=== PATIENT | male | born 1960 | race Caucasian/White ===

== ENCOUNTER 2023-05-28 13:33 | Outpatient (OUT) | payer OTHER, SELFPAY ==
--- NOTE | 2023-05-28 13:53 | XR_ITS ---
The [address] [address] Patient Name: TABATHA EARL MRN: [id number] date: 1960 Sex: M Assigned Patient Location: LAB Current Patient Location: LAB Accession/Order Number: [id number] Exam Date: 05/28/2023 13:58 Report Date: 05/28/2023 14:13 At the request of: CHYNA GUTIERREZ Procedure: XR chest 2V EXAM: XR chest 2V HISTORY: R06.09 Dyspnea on exertion for the past 3 months. COMPARISON: None. TECHNIQUE: Upright PA and lateral chest x-ray FINDINGS: The heart is not enlarged and the vasculature is not distended. A very small amount of atelectasis or infiltrate is suggested at the left lung base posteriorly. No acute infiltrate, effusion or pneumothorax is otherwise identified. The osseous structures are otherwise grossly intact. XR/XR chest 2V IMPRESSION: A small amount of atelectasis or infiltrate at the left lung base posteriorly is probably present. There is no other evidence of a focal infiltrate or cardiac decompensation. Direct comparison with a previous study would be helpful in determining the chronicity of these findings. Electronically authenticated by: SHAHRZAD JARAMILLO Date: 05/28/2023 14:13
[2023-05-28 14:09] LABS: Basophils Absolute Auto 0.1 10^3/uL (0.0-0.1); Basophils Percent Auto 1.1 % (0.2-2.0); Eosinophils Absolute Auto 0.2 10^3/uL (0.0-0.7); Eosinophils Percent Auto 2.4 % (0.9-7.0); Hematocrit 40.6 % (42.0-54.0); Immature Granulocytes Abs Auto 0.07 10^3/uL (0.00-0.03); Lymphocytes Absolute Auto 1.5 10^3/uL (1.2-3.8); Lymphocytes Percent Auto 20.9 % (20.5-60.0); Mean Corpuscular Hemoglobin 28.3 pg (25.9-34.0); Mean Corpuscular Volume 88.3 fL (80.0-94.0); Mean Platelet Volume 9.9 fL (9.5-13.5); Monocytes Absolute Auto 0.6 10^3/uL (0.3-0.8); Monocytes Percent Auto 7.8 % (1.7-12.0); Neutrophils Absolute Auto 4.8 10^3/uL (1.4-6.5); Neutrophils Percent Auto 66.8 % (43.0-75.0); Platelet Count 237 10^3/uL (150-450); White Blood Count 7.2 10^3/uL (4.0-11.0)
[2023-05-28 14:51] LABS: Alanine Aminotransferase 26 U/L (16-63); Albumin Globulin Ratio 0.7; Albumin Level 2.8 g/dL (3.4-5.0); Alkaline Phosphatase 86 U/L (46-116); Anion Gap 6.3; Aspartate Amino Transferase 12 U/L (15-37); BUN Creatinine Ratio 13.3; Bilirubin Total 0.4 mg/dL (0.2-1.0); Calcium 8.4 mg/dL (8.5-10.1); Carbon Dioxide 30.6 mmol/L (21.0-32.0); Chloride 107 mmol/L (98-107); Estimated GFR (African America >60 (>=60); Estimated GFR (Non-African Ame >60 (>=60); Globulin 3.9 g/dL; Glucose 101 mg/dL (74-106); Potassium 3.9 mmol/L (3.5-5.1); Sodium 140 mmol/L (136-145); Total Protein 6.7 g/dL (6.4-8.2)
== END 2023-05-28 13:34 | disposition home or self-care (01) ==
PROVIDERS: PCP Family Medicine; Visit Provider Nurse Practitioner
DX: R00.2 Palpitations (principal); R06.09 Other forms of dyspnea
CPT/HCPCS: 36415; 71046; 80053; 83880; 85025

== ENCOUNTER 2023-06-18 09:09 | Outpatient (OUT) | payer OTHER, SELFPAY ==
--- OUTSIDE RECORDS SUMMARY | 2023-06-18 09:14 | XMS_ITS | CCD ---
Author Name Unknown Address [address] [place] [id number] Organization [facility] Care Team Providers Care Cell Maker Name Role Phone Aaron Almaraz Unavailable MD Ashley Palma Primary Care Provider MD Aaron Almaraz Attending Provider [phone] MISC, DR COLEMAN Admitting Unavailable MISC, DR COLEMAN Attending Unavailable LOUIE, DR ASHLEY Grayson Primary Care Unavailable MISC, DR COLEMAN Consulting Unavailable MISC, DR COLEMAN Admitting Unavailable MISC, DR COLEMAN Attending Unavailable PALMA, DR ASHLEY Grayson Primary Care Unavailable MISC, DR COLEMAN Consulting Unavailable Louie, MD Ashley Grayson Primary Care Provider MD Aaron Almaraz Attending Provider Aaron Almaraz Attending Unavailable Aaron Almaraz Admitting Unavailable Ashley Palma Primary Care Unavailable MADONNA JO Attending Unavailable JACKIE MORALES Attending Unavailable CHYNA GUTIERREZ Attending Unavailable Allergies Allergy Classification Reported Allergen(s) Allergy Type Date of Onset Reaction(s) Facility (5 sources) patient allergy list reviewed by nurse or physicia Propensity to adverse reactions 6 Comment:Done [employer] Other (5 sources) Allergies Reconciled Propensity to adverse reactions Unknown [employer] Other Medications Current Medications Medication Drug Class(es) Dates Sig (Normalized) Sig (Original) meloxicam 15 mg oral tablet (2 sources) Nonsteroidal Anti-inflammatory Drug take 1 tablet by mouth once daily Meloxicam 15 MG TAKE 1 TABLET BY MOUTH ONCE DAILY Oral for 30 Days Active 24 hr metoprolol succinate 25 mg extended release oral tablet (20 sources) beta-Adrenergic Alexi Start: 03-21-2021 take 25 mg by mouth once daily Metoprolol Succinate Active 25 MG PO Daily March 20, 2021 11:00pm Metoprolol Succi tony ER Active predniSONE 5 mg oral tablet (20 sources) Start: 05-18-2023 predniSONE 5 M G 4 TABS A DAY FOR 1 WEEK, 3 TABS A DAY FOR 1 WEEK, 2 TABS A DAY FOR 1 A WEEK, 1 TAB A DAY FOR 1 WEEK Orally Once a day for 30 days Apr, Active Start: 04-23-2023 take 1 tablet by boby every twenty-four hours predniSONE 20 MG 1 tablet Orally Once a day for 30 days Apr, Active Start: 03-31-2022 take 1 tablet by boby th every twenty-four hours predniSONE 10 MG 1 tablet Orally Once a day for 30 day(s) Mar, Not-Taking Start: 02-13-2022 predniSONE 10 MG 40 mg for 14 days then 30 mg for 7 days, then 20 mg for 28 days Orally Once a day for 49 days Jan, Not-Taking Start: 08-01-2021 predniSONE 5 M G 2 TABLETS FOR 14 DAYS, THEN 1 TABLET FOR 14 DAYS Orally Once a day for 28 DAYS Jul, Active Start: 05-09-2021 take 1 tablet by boby every twenty-four hours predniSONE 20 MG 1 tablet Orally Once a day for 30 day(s) Apr, Active Start: 03-21-2021 End: 02-13-2022 take 20 mg by mouth once daily Prednisone Discontinued 20 MG PO Daily 180 March 20, 2021 11:00pm February 13, 2022 8:44am 1 ml ustekinumab 90 mg/ml prefilled syringe (8 sources) Interleukin-12 Antagonist, Interleukin-23 Antagonist Start: 04-23-2023 Ustekinumab (Stelara) 90 mg/mL Syringe Active 90 MG SUBCUT EVERY 8 WEEKS April 23, 2023 12:00am Stelara 90 MG/ML 1 sub q injection every 6 weeks Subcutaneous 1 every 6 weeks for 48 days Active Stelara Active Completed/Discontinued Medications Medication Drug Class(es) Dates Sig (Normalized) Sig (Original) 0.8 ml adalimumab 100 mg/ml auto-injector (16 sources) Tumor Necrosis Factor Alexi Start: 08-12-2021 Humira Pen 80 MG/0.8ML as directed Subcutaneous EVERY OTHER WEEK for 90 day(s) Jul, Not-Taking Start: 03-21-2021 End: 04-23-2023 Adalimumab (Humira(Cf)) 40 m g/0.4 mL syringe kit Discontinued 40 MG SUBCUT As Directed March 20, 2021 11:00pm April 23, 2023 7:09am every other week Problems Active Problems Problem Classification Problem Date Documented Da te Episodic/Chronic Abdominal pain (20 sources) Abdominal pain; Translations: [Unspecified abdominal pain] Onset: 08-04-2015 Episodic Cardiac dysrhythmias (7 sources) Palpitations; Translations: [Palpitations] Onset: 02-18-2018 Episodic Other gastrointestinal disorders (18 sources) Swollen abdomen; Translations: [Abdominal distension (gaseous)] Episodic Other inflammatory condition of skin (5 sources) Psoriasis; Translations: [Psoriasis, unspecified] Onset: 07-31-2017 Chronic Other lower respiratory disease (6 sources) Other forms of dyspnea; Translations: [OTHER FORMS OF DYSPNEA] Onset: 07-17-2022 Episodic Other non-traumatic joint disorders (1 source) Pain in unspecified joint Episodic Other nutritional; endocrine; and metabolic disorders (18 sources) Obese class II; Translations: [Body mass index (BMI) 35.0-35.9, adult] Chronic Other nutritional; endocrine; and metabolic disorders (18 sources) Obese class I; Translations: [Body mass index (BMI) 34.0-34.9, adult] Chronic Other skin disorders (5 sources) Localized swelling, mass and lump, right lower limb; Translations: [Localized swelling, mass and lump, right lower limb] Episodic Regional enteritis and ulcerative colitis (20 sources) Crohn's disease; Translations: [Crohn's disease, unspecified, without complications] Onset: 05-09-2021 Resolved: 11-14-2021 Chronic Unclassified (1 source) Encounter for screening for malignant neoplasm of colon; Translations: [Encounter for screening for malignant neoplasm of colon] Onset: 04-23-2023 Past or Other Problems Problem Classification Problem Date Documented Da te Episodic/Chronic Allergic reactions (5 sources) Contact dermatitis; Translations: [Contact dermatitis and other eczema, due to unspecified cause] Onset: Episodic Immunizations and screening for infectious disease (5 sources) Vaccination given; Translations: [Encounter for immunization] Onset: 4 Episodic Other gastrointestinal disorders (5 sources) Constipation; Translations: [Other constipation] Onset: 6 Episodic Phlebitis; thrombophlebitis and thromboembolism (5 sources) Phlebitis and thrombophlebitis of right popliteal vein; Translations: [Phlebitis and thrombophlebitis of right popliteal vein] Onset: 8 Episodic Residual codes; unclassified (5 sources) Edema; Translations: [Edema] Onset: 8 Episodic Residual codes; unclassified (2 sources) Localized edema; Translations: [Localized edema] Onset: 3 Episodic Results Test Name Value Interpretation Reference Range Facility Office Visiton 05-28-2023 Follow-up visit [id number] Antoine Bui Renuka 1960 M Date Provider Department Center 05/28/2023 CHYNA ENG HARJEET Zhong Family History Problem Relation Age of Onset No Known Problems Mother No Known Problems Father Family Status - Relation Status Age at Mother Father Level of Service:[id number] MD OFFICE/OUTPATIENT ESTABLISHED MOD MDM 30 MIN Normal [facility] Etienne 04-23-2023 L Specimen: [id number] Received: 04/23/23 Status: EDWIN Menendez Num: [id number] Spec Type: Surgical Subm Dr: Aaron Almaraz MD Tissues: A Small Intestine - Biopsy/Polyp (TERMINAL ILEUM BX) B Colon Biopsy (TRANS POLYP) Procedures: HE/4, Gross/Micro L4/2 Age/ Patient Sex Location Account Attending Physician Antoine Bui /[facility] [id number] Aaron Almaraz MD SPEC NUM: [id number] RECD: 04/23/23 STATUS: EDWIN MENENDEZ NUM: [id number] XIN: 04/23/23 DR: Aaron Almaraz MD ENTERED: 04/23/[address] [facility] DR: DIYA TYPE: Surgical DEPT: S ORDERED: HE/4, Gross/Micro L4/2 ORDERED: HE/4, Gross/Micro L4/2 Pathological Diagnosis A. Ileum, biopsy: - Benign small intestinal mucosa with congestion and edema B. Colon, transverse, polyp, biopsy: - Sessile serrated adenoma Clinical Information Crohn's, rule out Crohn's Gross Description A. Received in formalin labeled with the patient's name, date of and ileum biopsy is one brito tissue measuring 0.4 x 0.2 x 0.2 cm. Entirely submitted in one cassette labeled A1. B. Received in formalin labeled with the patient's name, date of and transverse colon polyp is one brito tissue measuring 0.5 x 0.4 x 0.2 cm. Entirely submitted in one cassette labeled B1. Specimen: [id number] Received: 04/23/23 Status: EDWIN Menendez Num: [id number] Spec Type: Surgical Subm Dr: Aaron Almaraz MD Tissues: A Small Intestine - Biopsy/Polyp (TERMINAL ILEUM BX) B Colon Biopsy (TRANS POLYP) Procedures: HE/Nadia, Gross/Micro L4/2 Patient: Antoine Bui [id number] (Continued) Specimen: [id number] Received: 04/23/23 (Continued) Signed (signature on file) Jonathan Ludwig MD 04/25/23 0938 Specimen: [id number] Received: 04/23/23 Status: EDWIN Menendez Num: [id number] Spec Type: Surgical Subm Dr: Aaron Almaraz MD Tissues: A Small Intestine - Biopsy/Polyp (TERMINAL ILEUM BX) B Colon Biopsy (TRANS POLYP) Procedures: HE/4, Gross/Micro L4/2 Patient: Evangelista Buimini Grayson [id number] (Continued) Specimen: [id number] Received: 04/23/23 (Continued) Microscopic Description A. Two H E slides reviewed. The microscopic examination confirms the diagnosis. B. Two H E slides reviewed. The microscopic examination confirms the diagnosis. CPT Codes 88861s2 Specimen: [id number] Received: 04/23/23 Status: EDWIN Menendez Num: [id number] Spec Type: Surgical Subm Dr: Aaron Almaraz MD Tissues: A Small Intestine - Biopsy/Polyp (TERMINAL ILEUM BX) B Colon Biopsy (TRANS POLYP) Procedures: HE/Nadia, Gross/Micro L4/2 Patient: Antoine Bui [id number] (Continued) Signed (signature on file) Jonathan Ludwig MD 04/25/23 0938 [facility] Office Visiton 11-20-2022 Follow-up visit [id number] Antoine Bui 1960 M Date Provider Department Center 11/20/2022 3848-MADONNA JO Family History Problem Relation Age of Onset No Known Problems Mother No Known Problems Father Family Status - Relation Status Age at Mother Father Level of Service:[id number] MD OFFICE/OUTPATIENT ESTABLISHED LOW MDM 20-29 MIN Normal [facility] C-REACTIVE PROTEINon 023 CRP [Mass/Vol] 14.5 mg/L High <8.0 [facility] Comment on above: Performed By: #### 8 , 4420 #### [facility] [address], [address] [place] [address] Bacteriologist Food: Romero Garber MD SED RATE BY MODIFIED HILDAERG RENon 11-07-2022 SED RATE BY MODIFIED WESTERGREN 45 mm/h High < OR = 20 [facility] Comment on above: Performed By: #### 8 , 4420 #### [facility] [address], [address] [place] [address] Bacteriologist Food: Romero Garber MD JULISSA SCREEN, IFA, W/REFL TITE R AND PATTERNon 08-22-2022 JULISSA SCREEN, IFA Negative Normal NEGATIVE [facility] Comment on above: Result Comment: JULISSA IFA is a first line screen for detecting the presence of up to approximately 150 autoantibodies in various autoimmune diseases. A negative JULISSA IFA result suggests an JULISSA-associated autoimmune disease is not present at this time, but is not definitive. If there is high clinical suspicion for Sjogren's syndrome, testing for anti-SS-A/Ro antibody should be considered. Anti-Genesis-1 antibody should be considered for clinically suspected inflammatory myopathies. AC-0: Negative International Consensus on JULISSA Patterns (https://doi.org/10.1515/vfvb-9982-1623) For additional information, please refer to http://education.P[employer].Ondore/faq/XWL892 (This link is being provided for informational/ educational purposes only.) Performed By: #### 9 05, 20023, 4418, 809, 58448, 4420, 6399 #### [facility] [address], [address] [place] [address] Bacteriologist Food: Romero Garber MD C-REACTIVE PROTEINon 023 CRP [Mass/Vol] 34.2 mg/L High <8.0 [facility] Comment on above: Performed By: #### 9 05, 92694, 4418, 809, 93873, 4420, 6399 #### [facility] [address], [address] [place] [address] Bacteriologist Food: Romero Garber MD CBC (INCLUDES DIFF/PLT)on Basophils (Bld) [#/Vol] 0.058 10*3/uL Normal 0-200 [facility] Comment on above: Performed By: #### 9 05, 93771, 4418, 809, 36462, 4420, 6399 #### [facility] [place] [address] Bacteriologist Food: Romero Garber MD Basophils/100 WBC (Bld) 0.8 % Normal [facility] Comment on above: Performed By: #### 9 05, 79159, 4418, 809, 44007, 4420, 6399 #### [facility] [place] [address] Bacteriologist Food: Romero Garber MD Eosinophils (Bld) [#/Vol] 0.223 10*3/uL Normal 15-500 [facility] Comment on above: Performed By: #### 9 05, 39780, 4418, 809, 84334, 4420, 6399 #### [facility] [place] [address] Bacteriologist Food: Romero Garber MD Eosinophils/100 WBC (Bld) 3.1 % Normal [facility] Comment on above: Performed By: #### 9 05, 53783, 4418, 809, 17522, 4420, 6399 #### [facility] [place] [address] Bacteriologist Food: Romero Garber MD Erythrocyte distribution width (RBC) [Ratio] 13.0 % Normal 11.0-15.0 [facility] Comment on above: Performed By: #### 9 05, 24919, 4418, 809, 01140, 4420, 6399 #### [facility] [place] [address] Bacteriologist Food: Romero Garber MD Hematocrit (Bld) [Volume fraction] 39.2 % Normal 38.5-50.0 [facility] Comment on above: Performed By: #### 9 05, 83249, 4418, 809, 21430, 4420, 6399 #### [facility] [place] [address] Bacteriologist Food: Romero Garber MD Hemoglobin (Bld) [Mass/Vol] 12.7 g/dL Low 13.2-17.1 [facility] Comment on above: Performed By: #### 9 05, 04667, 4418, 809, 87005, 4420, 6399 #### [facility] [place] [address] Bacteriologist Food: Romero Garber MD Lymphocytes (Bld) [#/Vol] 0.95 10*3/uL Normal 850-3900 [facility] Comment on above: Performed By: #### 9 05, 25556, 4418, 809, 14631, 4420, 6399 #### [facility] [place] [address] Bacteriologist Food: Romero Garber MD Lymphocytes/100 WBC (Bld) 13.2 % Normal [facility] Comment on above: Performed By: #### 9 05, 18222, 4418, 809, 77735, 4420, 6399 #### [facility] [place] [address] Bacteriologist Food: Romero Garber MD MCH (RBC) [Entitic mass] 27.6 pg Normal 27.0-33.0 [facility] Comment on above: Performed By: #### 9 05, 25974, 4418, 809, 22959, 4420, 6399 #### [facility] [place] [address] Bacteriologist Food: Romero Garber MD MCHC (RBC) [Mass/Vol] 32.4 g/dL Normal 32.0-36.[address] [facility] Comment on above: Performed By: #### 9 05, 07777, 4418, 809, 34387, 4420, 6399 #### [facility] [place] [address] Bacteriologist Food: Romero Garber MD MCV (RBC) [Entitic vol] 85.2 fL Normal 80.0-100.0 [facility] Comment on above: Performed By: #### 9 05, 15904, 4418, 809, 77564, 4420, 6399 #### [facility] [place] [address] Bacteriologist Food: Romero Garber MD Monocytes (Bld) [#/Vol] 0.619 10*3/uL Normal 200-950 [facility] Comment on above: Performed By: #### 9 05, 83852, 4418, 809, 19297, 4420, 6399 #### [facility] [place] [address] Bacteriologist Food: Romero Garber MD Monocytes/100 WBC (Bld) 8.6 % Normal [facility] Comment on above: Performed By: #### 9 05, 81148, 4418, 809, 10297, 4420, 6399 #### [facility] [place] [address] Bacteriologist Food: Romero Garber MD Neutrophils (Bld) [#/Vol] 5.35 10*3/uL Normal 1035-3421 [facility] Comment on above: Performed By: #### 9 05, 07741, 4418, 809, 91503, 4420, 6399 #### [facility] [place] [address] Bacteriologist Food: Romero Garber MD Neutrophils/100 WBC (Bld) 74.3 % Normal [facility] Comment on above: Performed By: #### 9 05, 22849, 4418, 809, 88782, 4420, 6399 #### [facility] [place] [address] Bacteriologist Food: Romero Garber MD Platelet mean volume (Bld) [Entitic vol] 9.8 fL Normal 7.5-12.5 [facility] Comment on above: Performed By: #### 9 05, 65542, 4418, 809, 15166, 4420, 6399 #### [facility] [place] [address] Bacteriologist Food: Romero Garber MD Platelets (Bld) [#/Vol] 306 10*3/uL Normal 140-400 [facility] Comment on above: Performed By: #### 9 05, 49480, 4418, 809, 44444, 4420, 6399 #### [facility] of [address], [address] [place] [address] Bacteriologist Food: Romero Garber MD RBC (Bld) [#/Vol] 4.60 10*6/uL Normal 4.20-5.80 [facility] Comment on above: Performed By: #### 9 05, 56511, 4418, 809, 97702, 4420, 6399 #### [facility] [place] [address] Bacteriologist Food: Romero Garber MD WBC (Bld) [#/Vol] 7.2 10*3/uL Normal 3.8-10.8 [facility] Comment on above: Performed By: #### 9 05, 93698, 4418, 809, 27296, 4420, 6399 #### [facility] [place] [address] Bacteriologist Food: Romero Garber MD [facility] Albumin [Mass/Vol] 3.6 g/dL Normal 3.6-5.1 [facility] Comment on above: Performed By: #### 9 05, 69561, 4418, 809, 39010, 4420, 6399 #### [facility] [place] [address] Bacteriologist Food: Romero Garber MD Albumin/Globulin [Mass ratio] 1.2 {ratio} Normal 1.0-2.5 [facility] Comment on above: Performed By: #### 9 05, 87163, 4418, 809, 23546, 4420, 6399 #### [facility] of [address], [address] [place] [address] Bacteriologist Food: Romero Garber MD ALP [Catalytic activity/Vol] 90 U/L Normal 35-144 [facility] Comment on above: Performed By: #### 9 05, 01066, 4418, 809, 70515, 4420, 6399 #### [facility] of [address], [address] [place] [address] Bacteriologist Food: Romero Garber MD ALT [Catalytic activity/Vol] 16 U/L Normal 9-46 [facility] Comment on above: Performed By: #### 9 05, 51782, 4418, 809, 07065, 4420, 6399 #### [facility] of [address], [address] [place] [address] Bacteriologist Food: Romero Garber MD AST [Catalytic activity/Vol] 15 U/L Normal 10-35 [facility] Comment on above: Performed By: #### 9 05, 46915, 4418, 809, 70136, 4420, 6399 #### [facility] of [address], [address] [place] [address] Bacteriologist Food: Romero Garber MD Bilirubin [Mass/Vol] 0.4 mg/dL Normal 0.2-1.2 [facility] Comment on above: Performed By: #### 9 05, 64371, 4418, 809, 28780, 4420, 6399 #### [facility] [place] [address] Bacteriologist Food: Romero Garber MD BUN/CREATININE RATIO NOT APPLICABLE Normal 6-22 [facility] Comment on above: Performed By: #### 9 05, 72628, 4418, 809, 51345, 4420, 6399 #### [facility] [place] [address] Bacteriologist Food: Romero Garber MD Calcium [Mass/Vol] 8.8 mg/dL Normal 8.6-10.3 [facility] Comment on above: Performed By: #### 9 05, 54988, 4418, 809, 45669, 4420, 6399 #### [facility] [place] [address] Bacteriologist Food: Romero Garber MD Chloride [Moles/Vol] 107 mmol/L Normal 98-110 [facility] Comment on above: Performed By: #### 9 05, 70709, 4418, 809, 31453, 4420, 6399 #### [facility] [place] [address] Bacteriologist Food: Romero Garber MD CO2 [Moles/Vol] 24 mmol/L Normal 20-32 [facility] Comment on above: Performed By: #### 9 05, 72435, 4418, 809, 68833, 4420, 6399 #### [facility] [place] [address] Bacteriologist Food: Romero Garber MD Creatinine [Mass/Vol] 0.76 mg/dL Normal 0.70-1.[address] [facility] [address] [facility] Comment on above: Performed By: #### 9 05, 89902, 4418, 809, 75865, 4420, 6399 #### [facility] [place] [address] Bacteriologist Food: Romero Garber MD GFR/1.73 sq M.predicted among non-blacks MDRD (S/P/Bld) [Vol rate/Area] 102 mL/min/{1.73_m2} Normal > OR = 60 [facility] Comment on above: Result Comment: The eGFR is based on the CKD-EPI 2021 equation. To calculate the new eGFR from a previous Creatinine or Cystatin C result, go to https://www.kidney.org/professionals/ kdoqi/gfr%5Fcalculator Performed By: #### 9 05, 15407, 4418, 809, 71646, 4420, 6399 #### [facility] [place] [address] Bacteriologist Food: Romero Garber MD Globulin (S) [Mass/Vol] 3.1 g/dL Normal 1.9-3.7 [facility] Comment on above: Performed By: #### 9 05, 12806, 4418, 809, 11727, 4420, 6399 #### [facility] [address], [address] [place] [address] Bacteriologist Food: Romero Garber MD Glucose [Mass/Vol] 96 mg/dL Normal 65-139 [facility] Comment on above: Result Comment: Non-fasting reference interval Performed By: #### 9 05, 42005, 4418, 809, 00456, 4420, 6399 #### [facility] [place] [address] Bacteriologist Food: Romero Garber MD Potassium [Moles/Vol] 4.4 mmol/L Normal 3.5-5.[address] [facility] [address] [facility] Comment on above: Performed By: #### 9 05, 52906, 4418, 809, 23073, 4420, 6399 #### [facility] [address], [address] [place] [address] Bacteriologist Food: Romero Garber MD Protein [Mass/Vol] 6.7 g/dL Normal 6.1-8.1 [facility] Comment on above: Performed By: #### 9 05, 87083, 4418, 809, 57252, 4420, 6399 #### [facility] [place] [address] Bacteriologist Food: Romero Garber MD Sodium [Moles/Vol] 138 mmol/L Normal 135-146 [facility] Comment on above: Performed By: #### 9 05, 76694, 4418, 809, 33467, 4420, 6399 #### [facility] [place] [address] Bacteriologist Food: Romero Garber MD Urea nitrogen [Mass/Vol] 19 mg/dL Normal 7-25 [facility] Comment on above: Performed By: #### 9 05, 90520, 4418, 809, 10677, 4420, 6399 #### [facility] [place] [address], [address] [place] [address] Bacteriologist Food: Romero Garber MD CYCLIC CITRULLINATED PEPTIDE (CCP) AB (IGG)on 08-22-2022 CYCLIC CITRULLINATED PEPTIDE (CCP) AB (IGG) 30 UNITS High [facility] Comment on above: Result Comment: Refe rence Range Negative: <20 Weak Positive: 20-39 Moderate Positive: 40-59 Strong Positive: >59 Performed By: #### 9 05, 92695, 4418, 809, 87672, 4420, 6399 #### [facility] [place] [address] Bacteriologist Food: Romero Garber MD RHEUMATOID FACTORon 08-23-19 RHEUMATOID FACTOR <14 Normal <14 [facility] Comment on above: Performed By: #### 9 05, 59396, 4418, 809, 51880, 4420, 6399 #### [facility] [place] [address] Bacteriologist Food: Romero Garber MD SED RATE BY MODIFIED WESTERG RENon 08-22-2022 SED RATE BY MODIFIED WESTERGREN 68 mm/h High < OR = 20 [facility] Comment on above: Performed By: #### 9 05, 38828, 4418, 809, 00510, 4420, 6399 #### [facility] [place] [address] Bacteriologist Food: Romero Garber MD URIC ACIDon 08-22-2022 Urate [Mass/Vol] 4.0 mg/dL Normal 4.0-8.0 [facility] Comment on above: Order Comment: FASTI NG:NO FASTING: NO Result Comment: Ther apeutic target for gout patients: <6.0 mg/dL Performed By: #### 9 05, 67752, 4418, 809, 25208, 4420, 6399 #### [facility] [place] [address] Bacteriologist Food: Romero Garber MD ECHOCARDIO M/2D COMPLETEon 0 08-07-2022 ECHOCARDIO M/2D COMPLETE Patient: ANTOINE BUI Exam Date: 08/07/2022 : 1960 Gender:M Ordering : MRS. JACKIE MOARLES NP Admission #: [id number] Family : Order #: [id number] CLICK HERE TO VIEW EXAM ECHOCARDIOGRAM REPORT PROCEDURE: CARDIO PULMONARY ECHOCARDIO M/2D COMP INDICATIONS: MCCABE COMPARISON: None. DESCRIPTION: COMPLETE ECHOCARDIOGRAM Real-time transthoracic echocardiography with 2D, M-mode, spectral and color flow Doppler performed. QUALITY: Technical quality was good. LEFT VENTRICLE: Normal chamber size. Borderline left ventricular hypertrophy. Global left ventricular systolic function is normal. LV EF: Visual estimation of left ventricular ejection fraction is 65% DIASTOLIC: Normal diastolic function. ATRIAL SEPTUM: LEFT ATRIUM: Mild dilatation. RIGHT ATRIUM: Mild dilatation. RIGHT VENTRICLE: Normal chamber size. Normal right ventricular systolic function. TRICUSPID VALVE: Normal mobility and thickness. No stenosis with trivial regurgitation. No evidence of pulmonary hypertension. RVSP 27 mmHg MITRAL VALVE: Normal mobility and thickness. No mitral valve prolapse. No evidence of mitral valve stenosis. There is no mitral annular calcification. Mild mitral regurgitation. AORTIC VALVE: Normal trileaflet appearance. No visible sclerosis. Normal leaflet mobility. No evidence of aortic valve stenosis. No aortic regurgitation. AORTIC ROOT: Normal diameter and appearance. PULMONIC VALVE: Normal thickness and mobility. No stenosis. Mild regurgitation. PERICARDIUM: No evidence of pericardial effusion. IVC: Collapses with inspirations. Normal size. PLEURA: CONCLUSION: 1. Normal ventricular function. LVEF is 65%. 2. Mild mitral regurgitation. 3. Normal right-sided pressures. 4. No pericardial effusion. Adult Echocardiography Procedure Report Left Ventricle LVEDD (3.7 - 5.6 cm): 5.23 cm LVESD (2.2 - 4.0 cm): 3.28 cm LVIVS thickness (0.6 - 1.2 cm): 0.95 cm LVPW thickness (0.5 - 1.0 cm): 1.21 cm e': 0.13 m/s E - e': 5.80 LVOT Max Gradient: 4.33 mm[Hg] Peak Velocity (LVOT): 1.04 m/s Mean Velocity (LVOT): 0.71 m/s LVOT Diameter 2.22 cm Left Ventricular Ejection Fraction: 65 % Left Atrium LA Volume Index (2D A2C): 95.65 ml, 95.65 ml Left Atrium Systolic Dimension: 4.32 cm Mitral Valve MV E to A Ratio: 0.86, 0.88 Mitral Valve A-Wave Peak Velocity: 0.86 m/s, 0.84 m/s Mitral Valve E-Wave Peak Velocity: 0.74 m/s, 0.74 m/s Right Ventricle RV Internal Diastolic Dimension: 4.19 cm Aorta AO Root Diam: 3.64 cm Ascending Ao Diam: 3.46 cm Aortic Valve AoV Area (Peak Marlon): 2.79 cm2, 2.79 cm2 AoV Area (VTI): 2.57 cm2, 2.57 cm2 Peak Velocity(Antegrade Flow): 1.44 m/s Peak Gradient(Antegrade Flow): 8.30 mm[Hg] Mean Velocity(Antegrade Flow): 1.00 m/s Mean Gradient(Antegrade Flow): 4.61 mm[Hg] Velocity Time Integral: 31.96 cm Tricuspid Valve Peak Velocity (Regurgitant Flow): 2.31 m/s, 2.30 m/s, 2.44 m/s Peak Velocity: 0.68 m/s Pulmonic Valve Peak Velocity: 0.96 m/s, 0.96 m/s Peak Gradient: 3.70 mm[Hg], 3.70 mm[Hg] Right Atrium Right Atrium Systolic Pressure: 48.54 ml, 48.54 ml Dictated by: Jorge A Ruiz M.D. on 08/07/2022 at 14:40 Approved by: Jorge A Ruiz M.D. on 08/07/2022 at 14:43 Normal [facility] CBC AUTO DIFFon 07-17-2022 BASO # 0.0 103/ul Normal 0.0-0.1 [facility] Comment on above: Performed By: #### C BC #### [facility] [address] [place] [address] Dr. Jaja Berman Basophils/100 WBC (Bld) 0.5 % Normal 0.2-2.0 [facility] Comment on above: Performed By: #### C BC #### [facility] [address] [place] [address] Dr. Jaja Berman EO # 0.2 103/ul Normal 0.0-0.7 [facility] Comment on above: Performed By: #### C BC #### [facility] [address] [place] [address] Dr. Jaja Berman Eosinophils/100 WBC (Bld) 3.5 % Normal 0.9-7.0 [facility] Comment on above: Performed By: #### C BC #### [facility] [address] [place] [address] Dr. Jaja Berman Erythrocyte distribution width (RBC) [Ratio] 12.5 % Normal 11.0-15.0 [facility] Comment on above: Performed By: #### C BC #### [facility] [address] [place] [address] Dr. Jaja Berman Hematocrit (Bld) [Volume fraction] 38.1 % Critically low 42.0-54.0 [facility] Comment on above: Performed By: #### C BC #### [facility] [address] [place] [address] Dr. Jaja Berman Hemoglobin (Bld) [Mass/Vol] 12.5 g/dL Critically low 14.0-18.0 [facility] Comment on above: Performed By: #### C BC #### [facility] [address] [place] [address] Dr. Jaja Berman IG # 0.02 10e3/ul Normal 0.00-0.03 [facility] Comment on above: Performed By: #### C BC #### [facility] [address] [place] [address] Dr. Jaja Berman IG % 0.3 % Normal 0.0-0.5 [facility] Comment on above: Performed By: #### C BC #### [facility] [address] [place] [address] Dr. Jaja Berman LYMPH # 1.2 103/ul Normal 1.2-3.8 [facility] Comment on above: Performed By: #### C BC #### [facility] [address] [place] [address] Dr. Jaja Berman Lymphocytes/100 WBC (Bld) 18.5 % Critically low 20.5-60.0 [facility] Comment on above: Performed By: #### C BC #### [facility] [address] [place] [address] Dr. Jaja Berman MANUAL DIFF REQ NO Normal [facility] Comment on above: Performed By: #### C BC #### [facility] [address] [place] [address] Dr. Jaja Berman MCH (RBC) [Entitic mass] 28.2 pg Normal 25.9-34.0 [facility] Comment on above: Performed By: #### C BC #### [facility] [address] [place] [address] Dr. Jaja Berman MCHC (RBC) [Mass/Vol] 32.8 g/dL Normal 29.9-35.2 [facility] Comment on above: Performed By: #### C BC #### [facility] [address] [place] [address] Dr. Jaja Berman MCV (RBC) [Entitic vol] 86.0 fL Normal 80.0-94.0 [facility] Comment on above: Performed By: #### C BC #### [facility] [address] [place] [address] Dr. Jaja Berman MONO # 0.5 103/ul Normal 0.3-0.8 [facility] Comment on above: Performed By: #### C BC #### [facility] [address] [place] [address] Dr. Jaja Berman Monocytes/100 WBC (Bld) 7.5 % Normal 1.7-12.0 [facility] Comment on above: Performed By: #### C BC #### [facility] [address] [place] [address] Dr. Jaja Berman NEUT # 4.3 103/ul Normal 1.4-6.5 [facility] Comment on above: Performed By: #### C BC #### [facility] [address] [place] [address] Dr. Jaja Berman Neutrophils/100 WBC (Bld) 69.7 % Normal 43.0-75.0 [facility] Comment on above: Performed By: #### C BC #### [facility] [address] [address] [address] Jaja Berman Platelet mean volume (Bld) [Entitic vol] 9.0 fL Critically low 9.5-13.5 [facility] Comment on above: Performed By: #### C BC #### [facility] [address] [address] [address] Jaja Berman PLT 251 103/ul Normal 150-450 [facility] Comment on above: Performed By: #### C BC #### [facility] [address] [address] [address] Jaja Berman RBC 4.43 106/ul Critically low 4.70-6.10 [facility] Comment on above: Performed By: #### C BC #### [facility] [address] [place] [address] Dr. Jaja Berman WBC 6.2 103/ul Normal 4.0-11.0 [facility] Comment on above: Performed By: #### C BC #### [facility] [address] [place] [address] Dr. Jaja Berman LIPID PROFILEon 07-17-2022 CHOL-HDL RATIO NORM SEE BELOW Normal [facility] Comment on above: Result Comment: 3.3 - 4.4 LOW RISK 4.4 - 7.1 AVERAGE RISK 7.1 - 11.0 MODERATE RISK >11.0 HIGH RISK Performed By: #### C MP, LIPID #### [facility] [address] [place] [address] Dr. Jaja Berman Cholesterol [Mass/Vol] 171 mg/dL Normal <=200 [facility] Comment on above: Performed By: #### C MP, LIPID #### [facility] [address] [place] [address] Dr. Jaja Berman Cholesterol in HDL [Mass/Vol] 37 mg/dL Critically low 40-60 [facility] Comment on above: Performed By: #### C MP, LIPID #### [facility] [address] [place] [address] Dr. Jaja Berman Cholesterol in LDL [Mass/Vol] 99.2 mg/dL Normal [facility] Comment on above: Performed By: #### C MP, LIPID #### [facility] [address] [address] [address] Jaja Berman Cholesterol.total/Chol esterol in HDL [Mass ratio] 4.6 {ratio} Normal [facility] Comment on above: Performed By: #### C MP, LIPID #### [facility] [address] [address] [address] Jaja Berman HDL NORMAL > or = 60 mg/dl - LOW CARDIOVASCULAR RISK <40 mg/dl - HIGH CARDIOVASCULAR RISK Normal [facility] Comment on above: Performed By: #### C MP, LIPID #### [facility] [address] [address] [address] Jaja Berman LDL CALC NORMAL SEE BELOW Normal [facility] Comment on above: Result Comment: <100 mg/dl OPTIMAL 100 - 129 mg/dl NEAR OR ABOVE OPTIMAL 130 - 159 mg/dl BORDERLINE HIGH 160 - 189 mg/dl HIGH >190 mg/dl VERY HIGH Performed By: #### C MP, LIPID #### [facility] [address] [address] [address] Jaja Berman Triglyceride [Mass/Vol] 174 mg/dL Critically high <=150 [facility] Comment on above: Performed By: #### C MP, LIPID #### [facility] [address] [address] [address] Jaja Berman VLDL CALC 34.8 mg/dL Normal [facility] Comment on above: Performed By: #### C MP, LIPID #### [facility] [address] [address] [address] Jaja Berman Office Visiton 07-17-2022 Follow-up visit [id number] Antoine Bui 1960 M Date Provider Department Center 07/17/2022 [id number] MORALES [facility] Family History Problem Relation Age of Onset No Known Problems Mother No Known Problems Father Family Status - Relation Status Age at Mother Father Level of Service:76555 MD OFFICE/OUTPATIENT ESTABLISHED MOD MDM 30-39 MIN Reason for Visit and Comments: Follow-up [103560] - 6 month follow up Normal [facility] PROF 14(COMP METB)on 023 Albumin [Mass/Vol] 2.9 g/dL Critically low 3.4-5.0 [facility] Comment on above: Performed By: #### C MP, LIPID #### [facility] [address] [address] [address] Jaja Berman Albumin/Globulin [Mass ratio] 0.7 {ratio} Normal [facility] Comment on above: Performed By: #### C MP, LIPID #### [facility] [address] [address] [address] Jaja Berman ALP [Catalytic activity/Vol] 97 U/L Normal 46-116 [facility] Comment on above: Performed By: #### C MP, LIPID #### [facility] [address] [address] [address] Jaja Berman ALT [Catalytic activity/Vol] 31 U/L Normal 16-63 [facility] Comment on above: Performed By: #### C MP, LIPID #### [facility] [address] [address] [address] Jaja Berman Anion gap [Moles/Vol] 10.6 mmol/L Normal [facility] Comment on above: Performed By: #### C MP, LIPID #### [facility] [address] [address] [address] Jaja Berman AST [Catalytic activity/Vol] 21 U/L Normal 15-37 [facility] Comment on above: Performed By: #### C MP, LIPID #### [facility] [address] [address] [address] Jaja Berman Bilirubin [Mass/Vol] 0.3 mg/dL Normal 0.2-1.0 [facility] Comment on above: Performed By: #### C MP, LIPID #### [facility] [address] [address] [address] Jaja Berman Calcium [Mass/Vol] 8.8 mg/dL Normal 8.5-10.1 [facility] Comment on above: Performed By: #### C MP, LIPID #### [facility] [address] [address] [address] Jaja Berman Chloride [Moles/Vol] 105 mmol/L Normal 98-107 [facility] Comment on above: Performed By: #### C MP, LIPID #### [facility] [address] [address] [address] Jaja Berman CO2 [Moles/Vol] 26.5 mmol/L Normal 21.0-32.0 [facility] Comment on above: Performed By: #### C MP, LIPID #### [facility] [address] [address] [address] Jaja Berman Creatinine [Mass/Vol] 0.79 mg/dL Normal 0.70-1.30 [facility] Comment on above: Performed By: #### C MP, LIPID #### [facility] [address] [address] [address] Jaja Berman EGFR-AF TOGOLESE >60 Normal >=60 [facility] Comment on above: Performed By: #### C MP, LIPID #### [facility] [address] [address] [address] Jaja Berman EGFR-NON AF TOGOLESE >60 Normal >=60 [facility] Comment on above: Performed By: #### C MP, LIPID #### [facility] [address] [address] [address] Jaja Berman Globulin (S) [Mass/Vol] 4.3 g/dL Normal [facility] Comment on above: Performed By: #### C MP, LIPID #### [facility] [address] [address] [address] Jaja Berman Glucose [Mass/Vol] 94 mg/dL Normal 74-106 [facility] Comment on above: Performed By: #### C MP, LIPID #### [facility] [address] [address] [address] Jaja Berman Potassium [Moles/Vol] 4.1 mmol/L Normal 3.5-5.1 [facility] Comment on above: Performed By: #### C MP, LIPID #### [facility] [address] [address] [address] Jaja Berman Protein [Mass/Vol] 7.2 g/dL Normal 6.4-8.2 [facility] Comment on above: Performed By: #### C MP, LIPID #### [facility] [address] [address] [address] Jaja Berman Sodium [Moles/Vol] 138 mmol/L Normal 136-145 [facility] Comment on above: Performed By: #### C MP, LIPID #### [facility] [address] [address] [address] Jaja Berman Urea nitrogen [Mass/Vol] 16.0 mg/dL Normal 7.0-18.0 [facility] Comment on above: Performed By: #### C MP, LIPID #### [facility] [address] [address] [address] Jaja Berman Urea nitrogen/Creatinine [Mass ratio] 20.3 mg/mg Normal [facility] Comment on above: Performed By: #### C MP, LIPID #### [facility] [address] [address] [address] Jaja Berman COVID-19 SOFIAOrdered By: Oxana Almaraz on 02-09-2022 SARS-CoV+SARS-CoV-2 (COVID-19) Ag IA.rapid Ql (Resp) Negative Negative [facility] Comment on above: This is a duplicate Lelo SARS Antigen (AUTUMN) result to be used for statistical tracking purpose only. No Panel InformationOrdered By: Aaron Almaraz on 02-09-2022 SARS Antigen (LFIA) [facility] Vital Signs Date Time Vital Sign Value Performing Clinician Facility 04-23-2023 09:10-0500 Diastolic blood pressure 82 mm[Hg] MD Ashley Palma Work Phone: [facility] 04-23-2023 09:10-0500 Heart rate 65 /min MD Ashley Palma Work Phone: [facility] 04-23-2023 09:10-0500 Respiratory rate 18 /min MD Ashley Palma Work Phone: [facility] 04-23-2023 09:10-0500 SaO2% (BldA) [Mass fraction] 99 % MD Ashley Palma Work Phone: [facility] 04-23-2023 09:10-0500 Systolic blood pressure 135 mm[Hg] MD Ashley Palma Work Phone: [facility] 04-23-2023 07:11-0500 Body height 182.88 cm MD Ashley Palma Work Phone: [facility] 04-23-2023 07:11-0500 Body weight 86.18 kg MD Ashley Palma Work Phone: [facility] 02-05-2023 09:00-0400 Body height 160.02 cm Aaron Almaraz Other [facility] [employer] Other 02-05-2023 09:00-0400 Body mass index (BMI) [Ratio] 33.83 kg/m2 Aaron Almaraz Other [employer] Other 02-05-2023 09:00-0400 Body weight 86.64 kg Aaron Almaraz Other [employer] Other 02-05-2023 09:00-0400 Diastolic blood pressure 84 mm[Hg] Aaron Almaraz Other [employer] Other 02-05-2023 09:00-0400 Systolic blood pressure 139 mm[Hg] Aaron Almaraz Other [employer] Other 07-17-2022 09:15-0500 Body height 160.02 cm Aaron Almaraz Other [employer] Other 07-17-2022 09:15-0500 Body mass index (BMI) [Ratio] 35.42 kg/m2 Aaron Dichanely Other [employer] Other 07-17-2022 09:15-0500 Body weight 90.72 kg Aaron Ditty Other [employer] Other 07-17-2022 09:15-0500 Diastolic blood pressure 81 mm[Hg] Aaron Ditty Other [employer] Other 07-17-2022 09:15-0500 Systolic blood pressure 139 mm[Hg] Aaron Ditty Other [employer] Other 11-14-2021 14:00-0400 Body height 160.02 cm Aaron Haoy Other [employer] Other 11-14-2021 14:00-0400 Body mass index (BMI) [Ratio] 35.42 kg/m2 Aaron Marilutty Other [employer] Other 11-14-2021 14:00-0400 Body weight 90.72 kg Aaron Marilutty Other [employer] Other 11-14-2021 14:00-0400 Diastolic blood pressure 84 mm[Hg] Aaron Ditty Other [employer] Other 11-14-2021 14:00-0400 Systolic blood pressure 118 mm[Hg] Aaron Ditty Other [employer] Other 08-01-2021 14:30-0400 Body height 160.02 cm Aaron Buiy Other [employer] Other 08-01-2021 14:30-0400 Body mass index (BMI) [Ratio] 35.42 kg/m2 Aaron Ditty Other [employer] Other 08-01-2021 14:30-0400 Body weight 90.72 kg Aaron Ditty Other [employer] Other 06-06-2021 16:15-0500 Body height 160.02 cm Aaron Ditty Other [employer] Other 06-06-2021 16:15-0500 Body mass index (BMI) [Ratio] 35.42 kg/m2 Aaron Ditty Other [employer] Other 06-06-2021 16:15-0500 Body weight 90.72 kg Aaron Ditty Other [employer] Other 05-09-2021 14:15-0500 Body height 160.02 cm Aaron Ditty Other [employer] Other 05-09-2021 14:15-0500 Body mass index (BMI) [Ratio] 35.25 kg/m2 Aaron Ditty Other [employer] Other 05-09-2021 14:15-0500 Body weight 90.27 kg Aaron Ditty Other [employer] Other 05-09-2021 14:15-0500 Diastolic blood pressure 89 mm[Hg] Aaron Ditty Other [employer] Other 05-09-2021 14:15-0500 Systolic blood pressure 133 mm[Hg] Aaron Ditty Other [employer] Other Encounters Encounter Date Encounter Type Care Provider Facility Start: 05-28-2023 End: 05-28-2023 ambulatory [facility] Start: 05-17-2023 End: 05-17-2023 ambulatory Aaron Almaraz Other [employer] Other Start: 05-17-2023 Telephone encounter Aaron Almaraz [facility] Start: 05-03-2023 End: 05-03-2023 ambulatory Aaron Almaraz Other [facility] [employer] Other Start: 05-03-2023 Telephone encounter Aaron Almaraz [facility] Start: 04-23-2023 Telephone encounter Aaron Almaraz [facility] Start: 04-23-2023 End: 04-23-2023 ambulatory Aaron Almaraz Facility:[facility] Start: 04-23-2023 End: 04-23-2023 Admission to same day surgery center MD Ashley Palma Work Phone: [facility] Work Phone: Start: 04-23-2023 End: 04-23-2023 ambulatory MD Ashley Palma Work Phone: [facility] Work Phone: Start: 02-21-2023 End: 02-21-2023 ambulatory Aaron Almaraz Other [employer] Other Start: 02-21-2023 Telephone encounter Aaron Almaraz [facility] Start: 02-05-2023 End: 02-05-2023 ambulatory Aaron Almaraz Other [employer] Other Start: 02-05-2023 Patient encounter procedure Aaron Almaraz [facility] Start: 11-20-2022 End: 11-20-2022 ambulatory [facility] Start: 08-07-2022 End: 08-08-[address] DOCTOR LERMA Facility:[facility] Start: 07-17-2022 Patient encounter procedure Aaron MONTAN[facility] Start: 07-17-2022 End: 07-18-[address] DOCTOR LERMA [facility] [employer] Other Start: 06-22-2022 End: 06-22-2022 ambulatory Aaron Almaraz Other [employer] Other Start: 06-22-2022 Telephone encounter Aaron LYNCH [facility] Start: 05-08-2022 End: 05-08-2022 ambulatory Aaron Almaraz Other [employer] Other Start: 05-08-2022 Telephone encounter Aaron LYNCH [facility] Start: 04-11-2022 End: 04-11-2022 ambulatory Aaron Almaraz Other [employer] Other Start: 04-11-2022 Telephone encounter Aaron LYNCH [facility] Start: 03-30-2022 End: 03-30-2022 ambulatory Aaron Almaraz Other [employer] Other Start: 03-30-2022 Telephone encounter Aaron LYNCH [facility] Start: 02-13-2022 End: 02-13-2022 ambulatory Aaron Almaraz Other [employer] Other Start: 02-13-2022 Telephone encounter Aaron LYNCH [facility] Start: 02-09-2022 End: 02-09-2022 Patient encounter procedure MD Ashley Palma Work Phone: [facility] Start: 11-14-2021 End: 11-14-2021 ambulatory Aaron Almaraz Other [employer] Other Start: 11-14-2021 Patient encounter procedure Aaron Almaraz [facility] Start: 08-12-2021 End: 08-12-2021 ambulatory Aaron Almaraz Other [employer] Other Start: 08-12-2021 Telephone encounter Aaron LYNCH [facility] Start: 08-01-2021 End: 08-01-2021 ambulatory Aaron Almaraz Other [employer] Other Start: 08-01-2021 Patient encounter procedure Aaron Almaraz [facility] Start: 08-01-2021 Telephone encounter Aaron LYNCH [facility] Start: 06-06-2021 End: 06-06-2021 ambulatory Aaron Almaraz Other [employer] Other Start: 06-06-2021 Patient encounter procedure Aaron Almaraz [facility] Start: 05-30-2021 End: 05-30-2021 ambulatory Aaron Almaraz Other [employer] Other Start: 05-30-2021 Telephone encounter Aaron Almaraz [facility] Start: 05-09-2021 End: 05-09-2021 ambulatory Aaron Almaraz Other [employer] Other Start: 05-09-2021 Patient encounter procedure Aaron Almaraz [facility] Procedures Date Procedure Procedure Detail Performing Clinician Start: 04-23-2023 Colonoscopy MD Ashley Palma Work Phone: Start: 12-09-2013 General examination of patient Aaron Almaraz Other SARS Antigen (LFIA) MD Merry Palma Work Phone: Plan of Treatment Date Care Activity Detail Author Start: 04-23-2023 [facility] Patient Education Colon polyps C rohn's Disease (DC) [facility] Work Phone: Immunizations Immunization Date Immunization Notes Care Provider Maida santamaria 09-23-2020 COVID-19 mRNAMadonnairnella (Pfizer) MD Ashley Palma Work Phone: [facility] 08-29-2020 COVID-19 Naina Gabriel (Pfizer) MD Ashley Palma Work Phone: [facility] 04-21-2020 influenza virus vaccine, split virus (incl. purified surface antigen) Aaron Almaraz Other [facility] [employer] Other 04-23-2019 influenza virus vaccine, split virus (incl. purified surface antigen) Aaron Almaraz Other [employer] Other 02-18-2014 tetanus and diphther ia toxoids, adsorbed, preservative free, for adult use (5 Lf of tetanus toxoid and 2 Lf of diphtheria toxoid) Aaron Almaraz Other [employer] Other Payers Date Payer Category Payer Self-pay [id number] 1960 Unknown [id number] 1960 Unknown [id number] 1959 Unknown [id number] [facility] Health [facility] [employer] [id number] Unknown [id number] Social History Date Type Detail Facility Unknown if ever smoked [employer] Other Sex Assigned At Sex Assigned At Bir th [employer] Other Start: 03-21-2021 End: 02-13-2022 Tobacco smoking status NHIS Never smoked tobacco (finding) [facility] Start: 1960 Sex Assigned At Male F [facility] Goals Date Patient Goal Desired Activity /State Clinical Notes 05-09-2021 to 05-28-2023 Note Date & Type Note Facility 05-28-2023 Note In light of worsenin g/continued SOB with exertion will send pt for labs and CXR. Philip has adverse reaction/side effect of pneumonia Will repeat echocardiogram to assess cardiac function, right sided pressures and Mitral valve regurg. Referral to pulmonology- for further evaluation. [facility] 05-28-2023 Note [facility] CARDIOLOGY PROGR ESS NOTE HPI: Antoine Bui is a 62 y.o. male here for routine f/U MCCABE and palpitations Patient here for 6 mo follow up palpitations and dyspnea on exertion. Denies chest pain. Says palpitations are no more than usual and remain very seldom . C/o worsening dyspnea on exertion. No testing since last apt in November 2022. Denied dyspnea at rest, or orthopnea. Does admit that he snores at night and currently has poor sleeping habits- I do not sleep well at all. Denied weight gain, leg swelling, fever, chills, N/V/D. Admits sinus congestion. Currently on decreasing steroid dose for Crohns. Admit sinus infection and congestion x 2-3 months. Review of Systems Cardiovascular: Positive for dyspnea on exertion and palpitations ( very seldom ). Neurological: Positive for light-headedness. All other systems reviewed and are negative. Visit Vitals BP 118/82 (BP Location: Left arm, Patient Position: Sitting) Pulse 78 Ht 1.829 m (6') Wt 97.5 kg (215 lb) SpO2 96% BMI 29.16 kg/m??? Smoking Status Never BSA 2.23 m??? No Known Allergies Medications: Current Outpatient Medications on File Prior to Visit Medication Sig Dispense Refill predniSONE (Deltasone) 5 mg tablet TAKE 4 TABLETS BY MOUTH ONCE DAILY FOR 7 DAYS, THEN TAKE 3 TABLETS ONCE DAILY FOR 7 DAYS, THEN TAKE 2 TABLET ONCE DAILY FOR 7 DAYS, AND THEN 1 TABLET ONCE DAILY FOR 7 DAYS ustekinumab (Stelara) subcutaneous injection Inject 90 mg under the skin every 3 (three) months. [DISCONTINUED] metoprolol succinate XL (Toprol-XL) 25 mg 24 hr tablet Take 25 mg by mouth in the morning. meloxicam (Mobic) 15 mg tablet Take 15 mg by mouth in the morning. No current facility-administered medications on file prior to visit. Physical Exam: Constitutional: Appearance: Normal appearance. Without apparent distress HENT: Head: Normocephalic and atraumatic. Nose: Nose normal. Mouth/Throat: Mouth: Mucous membranes are moist. Eyes: Extraocular Movements: Extraocular movements intact. Conjunctiva/sclera: Conjunctivae normal. Neck: Vascular: No JVD. Cardiovascular: Rate and Rhythm: Normal rate and regular rhythm. Pulses: Dorsalis pedis pulses are 3 on the right side and 3on the left side. Posterior tibial pulses are 3 on the right side and 3 on the left side. Heart sounds: Normal heart sounds, S1 normal and S2 normal. Pulmonary: Effort: Pulmonary effort is normal. Breath sounds: Normal breath sounds. Abdominal: General: Bowel sounds are normal. Palpations: Abdomen is soft. Musculoskeletal: General: Normal range of motion. Cervical back: Normal range of motion. Right lower leg: No edema. Left lower leg: No edema. Skin: General: Skin is warm and dry. Capillary Refill: Capillary refill takes less than 2 seconds. Neurological: General: No focal deficit present. Mental Status: he is alert and oriented to person, place, and time. Psychiatric: Mood and Affect: Mood normal. Behavior: Behavior normal. Thought Content: Thought content normal. Judgment: Judgment normal. Labs: 07/17/22 CBC stable K+ 4.1 normal BUN 16, CR 0.79- normal Lft normal Chol 171, HDL 37, trig 174, LDL 99.2 Last lab values have been reviewed CV Testin08/07/22 TTE LVSF normal 65% Mild MR Normal rt sided pressures Echo: 03/11/2018 Left Ventricle: Global left ventricular systolic function is normal (Visually estimated EF 55-60%). Normal diastolic function. No regional wall motion abnormality. Right Ventricle: The right ventricle is mildly enlarged. Normal right ventricular systolic function. Left Atrium: The left atrium is normal in size. Right Atrium: The right atrium is mildly enlarged. Mitral Valve: There is nonspecific thickening of the mitral valve leaflet. Trivial mitral regurgitation. Aortic Valve: The aortic valve is normal. No aortic valve regurgitation. Tricuspid Valve: Normal tricuspid valve. Trivial tricuspid regurgitation. Pulmonic Valve: Normal pulmonary valve. Mild pulmonary regurgitation. 48-hour Holter monitor: 02/25/2018 The average heart rate, excluding ectopy, was 86 bpm with a minimum of 49 bpm and a maximum of 153 bpm. Heart rate including ectopy totaled 386,410 beats. No patient diary was submitted. No patient triggered events noted. Cardiac stress test: 09/10/2012 No reversible ischemia Fixed inferior wall perfusion defect versus diaphragm attenuation artifact. Elevated right hemidiaphragm may contribute to this finding. Normal wall motion Normal ejection fraction, 63% Echo 08/07/2022: Normal LVEF 65% Mild mitral regurgitation Normal right sided pressures No pericardial effusion Assessment/Plan: Intermittent palpitations Continue toprol Dyspnea In light of worsening/continued SOB with exertion will send pt for labs and CXR. STelara has adverse reaction/side effect of pneumonia Will repeat echocardiogram to assess cardiac function, right side (more content not included)... [facility] 05-28-2023 Note Patient here for 6 m o follow up palpitations and dyspnea on exertion. Denies chest pain. Says palpitations are no more than usual and remain very seldom . C/o worsening dyspnea on exertion. No testing since last apt in November 2022. Review of Systems Cardiovascular: Positive for dyspnea on exertion and palpitations ( very seldom ). Neurological: Positive for light-headedness. All other systems reviewed and are negative. [facility] 05-28-2023 Note Continue toprol [facility] 04-23-2023 Procedure note [facility] 02-05-2023 Evaluation note Encounter Date Diagnosis Assessment Notes Jan, Crohns disease (ICD-10 - K50.90) [employer] Other 07-03-2023 NoteCardiology Clinic Note Subjective Antoine Bui is a 61 y.o. year old male patient with Chron's disease on Stelara who was referred to Cardiology for palpitations. He presents today for follow up. Patient adamantly denies any cardiac complaints or concerns. Patient denies any chest pain or shortness of breath. Patient denies any lower extremity edema, orthopnea, or proximal nocturnal dyspnea. No near-syncope or syncope. No dizziness or lightheadedness. He states that his palpitations are significantly improved and almost resolved. Patient had echo performed after his last appointment. Echo demonstrated normal EF with mild MR. Otherwise, no significant findings. Patient Active Problem List Diagnosis Chondromalacia, right knee Dyspnea Effusion, left knee Effusion, right knee Palpitations Family History Problem Relation Name Age of Onset No Known Problems Mother No Known Problems Father Social History Tobacco Use Smoking status: Never Smokeless tobacco: Never Substance Use Topics Alcohol use: Not Currently ROS Objective Visit Vitals BP 129/80 (BP Location: Left arm, Patient Position: Sitting) Pulse 70 Ht 1.829 m (6') Wt 88 kg (194 lb) SpO2 98% BMI 26.31 kg/m??? Smoking Status Never BSA 2.11 m??? Physical Exam General: Awake, alert, good spirits. NAD Pulm: Breath sounds clear to ascultation bilaterally with no wheeze, crackles or rhonchi Cards: Regular rate and rhythm, S1, S2. No S3 or S4 gallop. Murmur: none Abd: Soft, Nontender, physiologic bowel sounds are present Extr: Lower extremity edema: 1+. Skin: warm, dry, well perfused Neuro: A&Ox3, No gross deficits Allergies No Known Allergies Medications Current Outpatient Medications: meloxicam (Mobic) 15 mg tablet, Take 15 mg by mouth in the morning., Disp: , Rfl: metoprolol succinate XL (Toprol-XL) 25 mg 24 hr tablet, Take 25 mg by mouth in the morning., Disp: , Rfl: ustekinumab (Stelara) subcutaneous injection, Inject 90 mg under the skin every 3 (three) months., Disp: , Rfl: Recent Labs Obtain labs Imaging and other tests Echo: 03/11/2018 Left Ventricle: Global left ventricular systolic function is normal (Visually estimated EF 55-60%). Normal diastolic function. No regional wall motion abnormality. Right Ventricle: The right ventricle is mildly enlarged. Normal right ventricular systolic function. Left Atrium: The left atrium is normal in size. Right Atrium: The right atrium is mildly enlarged. Mitral Valve: There is nonspecific thickening of the mitral valve leaflet. Trivial mitral regurgitation. Aortic Valve: The aortic valve is normal. No aortic valve regurgitation. Tricuspid Valve: Normal tricuspid valve. Trivial tricuspid regurgitation. Pulmonic Valve: Normal pulmonary valve. Mild pulmonary regurgitation. 48-hour Holter monitor: 02/25/2018 The average heart rate, excluding ectopy, was 86 bpm with a minimum of 49 bpm and a maximum of 153 bpm. Heart rate including ectopy totaled 386,410 beats. No patient diary was submitted. No patient triggered events noted. Cardiac stress test: 09/10/2012 No reversible ischemia Fixed inferior wall perfusion defect versus diaphragm attenuation artifact. Elevated right hemidiaphragm may contribute to this finding. Normal wall motion Normal ejection fraction, 63% Echo 08/07/2022: Normal LVEF 65% Mild mitral regurgitation Normal right sided pressures No pericardial effusion Assessment Palpitations, stable on metoprolol Dyspnea on exertion, resolved. Normal LVEF, no chest pain Plan -Continue metoprolol for palpitations -patient denies any complaints or concerns at the present time -Optimize medical management -Aggressive risk factor modification -Plan of care discussed with patient. All questions were answered. Patient voices understanding and is agreeable with current plan. -Patient was educated on red flag symptoms. Strict return precautions were provided. Patient verbalizes understanding -Follow-up in cardiology clinic in 6 months, or sooner as needed [facility]onna Jo [facility]Un[facility] Evaluation note* Encounter Date Diagnosis Assessment Notes Treatment Notes Treatment Clinical Notes Jun, Crohns disease (ICD-10 - K50.90) Continue Stelara as directed RTO 6 months [employer] Other 02-27-2023 NotePatient is here today for a 6 month follow up. Patient states he has been having knee pain in both knees. Review of Systems Respiratory: Positive for cough. Musculoskeletal: Positive for joint pain.[facility] 07-17-2022 NoteCardiology Clinic Note Subjective Anotine Bui is a 61 y.o. year old male patient with Chron's disease on Stelara seen in follow-up for dyspnea on exertion and palpitations. He last saw Dr. Wallace in 12/2021. He reports ongoing palpitations occurring about once/month which is stable. Prior workup did not reveal arrhythmias. Stable dyspnea on exertion as well, however reports new onset lower extremity edema over the last month. He has been diagnosed with chondromalacia and will be starting PT soon. He attributes the lower extremity edema to the chondromalacia. He monitors his BP routinely at home with BP readings around 130/70. Patient Active Problem List Diagnosis Chondromalacia, right knee Dyspnea Effusion, left knee Effusion, right knee Palpitations Family History Problem Relation Name Age of Onset No Known Problems Mother No Known Problems Father Social History Tobacco Use Smoking status: Never Smokeless tobacco: Never Substance Use Topics Alcohol use: Not Currently ROS Objective Visit Vitals BP 134/85 (BP Location: Right arm, Patient Position: Sitting, BP Cuff Size: Adult) Pulse 63 Ht 1.829 m (6') Wt 93.2 kg (205 lb 6.4 oz) SpO2 98% BMI 27.86 kg/m??? Smoking Status Never BSA 2.18 m??? Physical Exam General: Awake, alert, good spirits. NAD Pulm: Breath sounds clear to ascultation bilaterally with no wheeze, crackles or rhonchi Cards: Regular rate and rhythm, S1, S2. No S3 or S4 gallop. Murmur: none Abd: Soft, Nontender, physiologic bowel sounds are present Extr: Lower extremity edema: 1+. Skin: warm, dry, well perfused Neuro: A&Ox3, No gross deficits Allergies No Known Allergies Medications Current Outpatient Medications: meloxicam (Mobic) 15 mg tablet, Take 15 mg by mouth in the morning., Disp: , Rfl: metoprolol succinate XL (Toprol-XL) 25 mg 24 hr tablet, Take 25 mg by mouth in the morning., Disp: , Rfl: ustekinumab (Stelara) subcutaneous injection, Inject 90 mg under the skin every 3 (three) months., Disp: , Rfl: Recent Labs Obtain labs Imaging and other tests Echo: 03/11/2018 Left Ventricle: Global left ventricular systolic function is normal (Visually estimated EF 55-60%). Normal diastolic function. No regional wall motion abnormality. Right Ventricle: The right ventricle is mildly enlarged. Normal right ventricular systolic function. Left Atrium: The left atrium is normal in size. Right Atrium: The right atrium is mildly enlarged. Mitral Valve: There is nonspecific thickening of the mitral valve leaflet. Trivial mitral regurgitation. Aortic Valve: The aortic valve is normal. No aortic valve regurgitation. Tricuspid Valve: Normal tricuspid valve. Trivial tricuspid regurgitation. Pulmonic Valve: Normal pulmonary valve. Mild pulmonary regurgitation. 48-hour Holter monitor: 02/25/2018 The average heart rate, excluding ectopy, was 86 bpm with a minimum of 49 bpm and a maximum of 153 bpm. Heart rate including ectopy totaled 386,410 beats. No patient diary was submitted. No patient triggered events noted. Cardiac stress test: 09/10/2012 No reversible ischemia Fixed inferior wall perfusion defect versus diaphragm attenuation artifact. Elevated right hemidiaphragm may contribute to this finding. Normal wall motion Normal ejection fraction, 63% Assessment Diagnoses and all orders for this visit: Palpitations Dyspnea on exertion - Transthoracic echo (TTE) complete; Future - Lipid panel; Future - CBC; Future - Comprehensive metabolic panel; Future Lower extremity edema Plan Dyspnea on exertion -New onset edema over the last month. Last echo was in 2018, will obtain repeat to evaluation LV function and r/o VHD. Recommended compression stockings and sodium restrictions to help manage symptoms. Check albs today. 2. Palpitations -Stable on low dose Metoprolol. Check echo. He is in regular rhythm here. Follow up in about 6 months (around 01/14/2023). Jackie Morales APRN-[facility] Evaluation note* Encounter Date Diagnosis Assessment Notes Treatment Notes Treatment Clinical Notes Jun, Crohns disease (ICD-10 - K50.90) Jun, Joint pain (ICD-10 - M25.50) [facility] [employer] Other 06-27-2022 Evaluation note* Encounter Date Diagnosis Assessment Notes Treatment Notes Treatment Clinical Notes Oct, Crohns disease (ICD-10 - K50.90) Continue Humira 80mg every other week. Patient to call if symptoms worsen. Follow up in 6 months. [employer] Other 03-14-2022 Evaluation note* Encounter Date Diagnosis Assessment Notes Treatment Notes Treatment Clinical Notes Jul, Crohns disease (ICD-10 - K50.90) [employer] Other 01-17-2022 Evaluation note* Encounter Date Diagnosis Assessment Notes Treatment Notes Treatment Clinical Notes May, Crohns disease (ICD-10 - K50.90) PROCEED WITH THE HUMIRA INCREASE PREVOIUSLY DISCUSSED AND THIS WAS SUBMITTED TO THE INSURANCE COMPANY [employer] 20 MG FOR NOW ( UNTIL THE HIGHER DOSE OF HUMIRA CAN BE PUT ON BOARD) F/U HERE 3 MONTHS [employer] Other 12-20-2021 Evaluation note* Encounter Date Diagnosis Assessment Notes Treatment Notes Treatment Clinical Notes Apr, Crohns disease (ICD-10 - K50.90) Pt to take Humira today and have lab drawn prior to next injection Restart Prednisone 20mg daily Follow up in 3 months [employer] Other Evaluation noteNo [employer] Other Evaluation noteNo assessment information available [facility] Work Phone: History and physical note Author Aaron Almaraz [facility] April 23, 2023 8:17am Note Date/Time April 23, 2023 8 :17am [facility] [address] [place] [address] Gastroenterology H&P Signed Patient: Antoine Bui MR#: [id number] : 1960 Acct:[id number] Age/Sex: 62 / M Adm Date: 3 Loc: Room: Type: [facility] Attending Dr: Aaron Almaraz MD Copies to: MD Ashley Larkin MD~ Date of Service: 04/23/2023 HISTORY & PHYSICAL: Patient's history with special attention to the cardiovascular, pulmonary systems and the current problem was reviewed with the patient immediately prior to the procedure. Present medications and doses reviewed in the EMR. Allergies and pertinent laboratory tests were also reviewedat this time in the EMR. The physical examination, as below, was then performed. Indication, assessment and HPI: 62-year-old male with a history of Crohn's disease on Stelara, every 8 week dosing trying to get approved for every 6 week dosing presents for screening and staging colonoscopy. Family history of GI malignancy? No PHYSICAL EXAMINATION Mouth and Pharynx : Moist mucus membranes, normal dentition Cardiac: Regular rate, regular rhythm Pulmonary: Clear to auscultation bilaterally, no wheezing Neurological: Alert and oriented x3, no focal deficits noted Abdomen: Abdomen soft, non-tender REVIEW OF SYSTEMS Constitutional: Denies malaise, fevers Cardiovascular: Denies chest pain, palpitations Respiratory: Denies shortness of breath, wheezing Gastrointestinal: Per HPI Genitourinary: Denies dysuria, polyuria Musculoskeletal: Denies joint swelling, joint stiffness Neurological: Denies numbness, tingling Integumentary: Denies rashes, skin lesions Endocrine: Denies fatigue, weight loss Written informed consent obtained from the patient. Risks (including but not limited to perforation, infection, bloating, bleeding, need for emergent surgeryand loss of life), benefits and alternatives explained and questions answered. The patient verbalized understanding. Based on history patient is an appropriate candidate for the procedure. Aaron Almaraz MD Documented By: Aaron Almaraz MD 04/23/23 0816 Signed By: <Electronically signed by Aaron Almaraz MD> 04/23/23 0817 [facility] Work Phone: History general Narrative - Reported* Type Description Date Medical History CROHNS Medical History palpitations Surgical History hernia repair [facility] [employer] Other [facility] [employer] [facility] Discharge instructions Additional Instructions DISCHARGE INSTRUCTIONS FOR COLONOSCOPY WHAT TO EXPECT: - You may feel full, gassy or cramping after your procedure. In some cases, this may be from a few hours to a day. Walking may help relieve the discomfort. - If you have polyp(s) removed you may note some minor bloody discharge after your first bowel movements. - You should begin to recover from anesthesia within 1 hour of the procedure, however may feel groggy for the next 24 hours. DO's AND DON'Ts: - Call your doctor right away if you have a hard abdomen, severe pain, are passing lots of bright red blood or clots. - Call your doctor if you develop any rashes, hives or difficulty breathing. - Let your doctor know if you have not had a bowel movement by 3 days after your procedure. - If you take 81 mg aspirin for your heart it is safe to resume this medication. - If you take other blood thinner medications your doctor will instruct you when these can safely be resumed. - Do NOT drive for 24 hours. - Do NOT operate machinery such as power tools, lawn mowers, snow blowers, sewing machines, etc. for 24 hours. - Avoid alcoholic beverages and drugs for allergies, nerves, or sleep. - Do NOT stay alone. Do NOT leave your child unattended. - Do NOT make important personal or business decisions or sign any legal documents. - Eat solid foods and drink liquids in smaller amounts than usual until normal appetite returns. If you should experience an upset stomach, liquids high in sugar content (soda, Guy-Aid, non-acid juices) are recommended. - You can resume normal activities tomorrow. FOLLOW UP & RECOMMENDATIONS: -Dr. Almaraz's office will call in a low-dose steroid for you. -Follow-up with Dr. Almaraz as scheduled. -Notify the doctor if you have any problems. -Follow up with PCP. -Office number [phone].[facility] Work Phone: Chief Complaint and Reason for Visit Chief Complaint Crohn's Disease Advance Directives No Advanced Directives Records Found Advance Directive Response Recorded Date/ Time Advance Directives No August 12, 2 019 1:21pm Advance Directive Response Recorded Date/ Time Advance Directives No August 12, 2 019 12:21pm Reason for Referral Reason 08/14/22 @ 12:30 C onsult to rule out arthritis related to Crohns disease Diagnosis 1 Crohns disease (K50. 90) Referral Organization [facility] Referring Provider First Name Aaron Referring Provider Last Name Sung Referring Provider Specialty Gastroenter ology Referred Organization Unknown Facility Referred Provider Antwan Tillman Referred Provider Specialty Rheumatology Referral Priority Routine Referral Appointment Date 2022-08-14 General Notes Ivonne Bynum 0 06/26/2022 03:00:32 PM > Referral faxed to Dr. Tillman. Ivonne Bynum 07/03/2022 09:59:10 AM > Faxed letter to follow up. Ivonne Bynum 07/03/2022 11:54:58 AM > Per fax from Dr. Tillman's office they did not receive referral. Referral re-faxed. Ivonne Bynum 07/11/2022 10:05:36 AM > Per Dr. Tillman's office they received referral and patient is scheduled 08/14/22 @ 12:30 pm. Summary Purpose Family History No Family History Records Found Additional Source Comments REASON FOR VISIT (unrecogniz ed section and content) PATIENT HERE FOR 3 MONTH FOL LOW UP. HUMIRA WAS INCREASED TO 80MG EVERY OTHER WEEK.PATIENT HERE FOR FOLLOW UP COLONOSCOPY DONE FOR CROHN'S DISEASE.PATIENT HERE FOR FOLLOW UP, HE IS HAVING ONE LOSE BOWEL MOVEMENT DAILY WITH NO BLOOD HIS PAIN IS MINIMALPATIENT HERE FOR FOLLOW UP CROHN'S DISEASE. PATIENT STATES HE IS DOING WELL AT THIS TIME AND DOES CONTINUE ON THE MEDICATION.MEDICATION- HUMIRA08/26 HUMIRAPRESCRIPTION CLARIFICATIONStelara - approvedStelaraClinicalClinicalPATIENT HERE FOR 6 MONTH FOLLOW UP CROHNS. PT WAS STARTED ON STELARA.6 month Follow up of crohn's disease. The patient is on Stelara.ordersmove Stelara to q6w- denied - appealing (03/27)pharmacy changeORDERS Care Teams (unrecognized sec tion and content) Team Status: Active Member Role Status Dates Ashley Palma MD Primary Care Provider Active Team Status: Inactive Member Role Status Dates Ashley Palma MD Primary Care Provider Active Aaron Almaraz MD Attending Provider Active Goals (unrecognized section and content) Goals may be documented in a n alternate section (unrecognized sect ion and content) No Status Records FoundNo Status Records FoundNo Status Records FoundNo Status Records Found INFORMATION SOURCE (unrecogn ized section and content) DATE CREATED AUTHOR 08/13/2022 [facility] DATE CREATED AUTHOR AUTHOR'S ORGANIZ ATION 11/07/2022 [facility] DATE CREATED AUTHOR AUTHOR'S ORGANIZ ATION 05/03/2023 [facility] DATE CREATED AUTHOR AUTHOR'S ORGANIZ ATION 05/28/2023 [facility] FOR RECORDS PERTAINING TO PATIENTS WHO ARE OR HAVE BEEN ENROLLED IN A CHEMICAL DEPENDENCY/SUBSTANCEABUSE PROGRAM, SOME INFORMATION MAY BE OMITTED. This clinical summary was aggregated from multiple sources. Caution should be exercised in using it in the provision of clinical care. This summary normalizes information from multiple sources, and as a consequence, information in this document may materially change the coding, format and clinical context of patient data. In addition, data may be omitted in some cases. CLINICAL DECISIONS SHOULD BE BASED ON THE PRIMARY CLINICAL RECORDS. [facility]. provides no warranty or guarantee of the accuracy or completeness of information in this document.
--- NOTE | 2023-06-18 09:52 | CA_ITS ---
Patient Name: TABATHA EARL MR#: [id number] : 1960 Exam Date: 06/18/2023 Ordering Doctor: CHYNA GUTIERREZ ECHOCARDIOGRAM REPORT PROCEDURE: CA ECHO DOPPLER COMPLETE INDICATIONS: Palpitations, Dyspnea COMPARISON: None. DESCRIPTION: COMPLETE ECHOCARDIOGRAM Real-time transthoracic echocardiography with 2D, M-mode, spectral and color flow Doppler performed. QUALITY: Technical quality was good. LEFT VENTRICLE: Normal chamber size. Mild concentric left ventricular hypertrophy. Global left ventricular systolic function is normal. LV EF: Estimated left ventricular ejection fraction 60-65% DIASTOLIC: Normal diastolic function. ATRIAL SEPTUM: LEFT ATRIUM: Normal chamber size. RIGHT ATRIUM: Mild dilatation. RIGHT VENTRICLE: Mildly dilated. Normal right ventricular systolic function. TRICUSPID VALVE: Normal mobility and thickness. No stenosis with mild regurgitation. No evidence of pulmonary hypertension. RVSP 29 mmHg MITRAL VALVE: Normal mobility and thickness. Mild mitral valve stenosis. There is no mitral annular calcification. Mild mitral regurgitation. AORTIC VALVE: Normal trileaflet appearance. No visible sclerosis. Normal leaflet mobility. No evidence of aortic valve stenosis. No aortic regurgitation. AORTIC ROOT: Normal diameter and appearance. PULMONIC VALVE: Normal thickness and mobility. No stenosis. Mild regurgitation. PERICARDIUM: No evidence of pericardial effusion. IVC: Collapses with inspirations. PLEURA: CONCLUSION: 1. Mild concentric left ventricular hypertrophy with normal systolic function. LVEF is estimated at 60 to 65%. 2. Normal diastolic function. 3. Mildly dilated right ventricle with normal systolic function. 4. Mild right atrial dilatation. 5. Mild mitral, tricuspid and pulmonary regurgitation. 6. Normal right-sided pressures. Adult Echocardiography Procedure Report Left Ventricle LVEDD (3.7 - 5.6 cm): 5.10 cm LVESD (2.2 - 4.0 cm): 3.26 cm LVIVS thickness (0.6 - 1.2 cm): 1.19 cm LVPW thickness (0.5 - 1.0 cm): 1.35 cm e': 0.10 m/s E - e': 8.14 LVOT Max Gradient: 2.18 mm[Hg] LVOT Area (cm2): 0.74 m/s Peak Velocity (LVOT): 0.74 m/s Mean Velocity (LVOT): 0.52 m/s LVOT Diameter 2.25 cm Left Ventricular Ejection Fraction: 60-65 % Left Atrium LA Volume Index (2D A2C): 33.45 ml/m2 Left Atrium Systolic Dimension: 4.69 cm Mitral Valve MV E to A Ratio: 1.01 Mitral Valve A-Wave Peak Velocity: 0.78 m/s Mitral Valve E-Wave Peak Velocity: 0.79 m/s Right Ventricle RV Internal Diastolic Dimension: 3.82 cm Aorta AO Root Diam: 3.90 cm Ascending Ao Diam: 3.33 cm Aortic Valve AoV Area (Peak Marlon): 2.22 cm2, 2.22 cm2 AoV Area (VTI): 2.18 cm2, 2.18 cm2 Peak Velocity(Antegrade Flow): 1.33 m/s Peak Gradient(Antegrade Flow): 7.03 mm[Hg] Mean Velocity(Antegrade Flow): 0.86 m/s Mean Gradient(Antegrade Flow): 3.47 mm[Hg] Velocity Time Integral: 27.40 cm Tricuspid Valve Peak Velocity (Regurgitant Flow): 2.56 m/s, 2.41 m/s, 2.30 m/s Pulmonic Valve Mean Gradient: 2.29 mm[Hg], 2.51 mm[Hg] Mean Velocity: 0.70 m/s, 0.75 m/s Peak Velocity: 1.07 m/s Peak Gradient: 4.71 mm[Hg], 4.40 mm[Hg] Right Atrium Right Atrium Systolic Pressure: 87.47 ml, 87.47 ml Dictated by: Jorge A Ruiz M.D. on 06/19/2023 at 18:35 Approved by: Jorge A Ruiz M.D. on 06/19/2023 at 18:39
== END 2023-06-18 09:10 | disposition home or self-care (01) ==
LOC: CARD 09:11
PROVIDERS: PCP Family Medicine; Visit Provider Nurse Practitioner
DX: R00.2 Palpitations (principal); R06.09 Other forms of dyspnea; I08.8 Other rheumatic multiple valve diseases
CPT/HCPCS: 93306

== ENCOUNTER 2023-08-06 12:24 | Outpatient (OUT) | payer OTHER, SELFPAY ==
--- OUTSIDE RECORDS SUMMARY | 2023-08-06 12:35 | XMS_ITS | CCD ---
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 Role Phone Aaron Almaraz Unavailable MD Ashley Palma Primary Care Provider MD Aaron Almaraz Attending Provider MISC, DR COLEMAN Admitting Unavailable MISC, DR COLEMAN Attending Unavailable LOUIE, DR ASHLEY Grayson Primary Care Unavailable MISC, DR COLEMAN Consulting Unavailable MISC, DR COLEMAN Admitting Unavailable MISC, DR COLEMAN Attending Unavailable PALMA, DR ASHLEY Grayson Primary Care Unavailable MISC, DR COLEMAN Consulting Unavailable Louie, MD Ashley Grayson Primary Care Provider [phone] MD Aaron Almaraz Attending Provider Aaron Almaraz Attending Unavailable Aaron Almaraz Admitting Unavailable Ashley Palma Primary Care Unavailable MADONNA JO Attending Unavailable JACKIE MORALES Attending Unavailable CHYNA GUTIERREZ Attending Unavailable Allergies Allergy Classification Reported Allergen(s) Allergy Type Date of Onset Reaction(s) Facility (5 sources) patient allergy list reviewed by nurse or physicia Propensity to adverse reactions 6 Comment:Done [facility] Other (5 sources) Allergies Reconciled Propensity to adverse reactions Unknown [facility] Other Medications Current Medications Medication Drug Class(es) [...] mg/ml auto-injector (16 sources) Tumor Necrosis Factor Laexi Start: 08-12-2021 Humira Pen 80 MG/0.8ML as [...] Range Facility Office Visiton 05-28-2023 Follow-up visit [id number] Antoine Bui Renuka 1960 M Date Provider Department Center 05/28/2023 CHYNA ENG HARJEET Zhong Family History Problem Relation Age of Onset No Known Problems Mother No Known Problems Father Family Status - Relation Status Age at Mother Father Level of Service:88767 IN OFFICE/OUTPATIENT ESTABLISHED MOD MDM 30 MIN Normal [facility] Etienne 04-23-2023 L Specimen: [id number] Received: 04/23/23 Status: EDWIN Menendez Num: [id number] Spec Type: Surgical Subm Dr: Aaron Almaraz MD Tissues: A Small Intestine - Biopsy/Polyp (TERMINAL ILEUM BX) B Colon Biopsy (TRANS POLYP) Procedures: HE/4, Gross/Micro L4/2 Age/ Patient Sex Location Account Attending Physician Antoine Bui /[facility] [id number] Aaron Almaraz MD SPEC NUM: [id number] RECD: 04/23/23 STATUS: EDWIN MENENDEZ NUM: [id number] XIN: 04/23/23 DR: Aaron Almaraz MD ENTERED: 04/23/23 [facility] DR: DIYA TYPE: Surgical DEPT: S [...] submitted in one cassette labeled B1. Specimen: [id number] Received: 04/23/23 Status: EDWIN Menendez Num: [id number] Spec Type: Surgical Subm Dr: Aaron Almaraz MD Tissues: A Small Intestine - Biopsy/Polyp (TERMINAL ILEUM BX) B Colon Biopsy (TRANS POLYP) Procedures: HE/Nadia, Gross/Micro L4/2 Patient: Antoine Bui [id number] (Continued) Specimen: [id number] Received: 04/23/23 (Continued) Signed (signature on file) Jonathan Ludwig MD 04/25/23 0938 Specimen: [id number] Received: 04/23/23 Status: EDWIN Menendez Num: [id number] Spec Type: Surgical Subm Dr: Aaron Almaraz MD Tissues: A Small Intestine - Biopsy/Polyp (TERMINAL ILEUM BX) B Colon Biopsy (TRANS POLYP) Procedures: HE/4, Gross/Micro L4/2 Patient: Evangelista Buimini Grayson [id number] (Continued) Specimen: [id number] Received: 04/23/23 (Continued) Microscopic Description A. Two H E slides reviewed. The microscopic examination confirms the diagnosis. B. Two H E slides reviewed. The microscopic examination confirms the diagnosis. CPT Codes 09979k3 Specimen: [id number] Received: 04/23/23 Status: EDWIN Menendez Num: [id number] Spec Type: Surgical Subm Dr: Aaron Almaraz MD Tissues: A Small Intestine - Biopsy/Polyp (TERMINAL ILEUM BX) B Colon Biopsy (TRANS POLYP) Procedures: HE/Nadia, Gross/Micro L4/2 Patient: Antoine Bui [id number] (Continued) Signed (signature on file) Jonathan Ludwig MD 04/25/23 0938 [facility] Office Visiton 11-20-2022 Follow-up visit [id number] Antoine Bui 1960 M Date Provider Department Center 11/20/2022 3848-MADONNA JO Family History Problem Relation Age of Onset No Known Problems Mother No Known Problems Father Family Status - Relation Status Age at Mother Father Level of Service:[id number] IN OFFICE/OUTPATIENT ESTABLISHED LOW MDM 20-29 MIN Normal [facility] C-REACTIVE PROTEINon 023 CRP [Mass/Vol] 14.5 mg/L High <8.0 [facility] Comment on above: Performed By: #### 8 , 4420 #### [facility] [address], [address] [place] [address] [employer] Supervisor: Romero Garber MD SED RATE BY MODIFIED HILDAERG RENon 11-07-2022 SED RATE BY MODIFIED WESTERGREN 45 mm/h High < OR = 20 [facility] Comment on above: Performed By: #### 8 , 4420 #### [facility] [address], [address] [place] [address] [employer] Supervisor: Romero Garber MD JULISSA SCREEN, IFA, W/REFL [...] AC-0: Negative International Consensus on JULISSA Patterns (https://doi.org/10.1515/idzh-4900-1311) For additional information, please refer to http://education.[employer].Hard Candy Cases/faq/KNA976 (This link is being provided for informational/ educational purposes only.) Performed By: #### 9 05, 39880, 4418, 809, 99747, 4420, 6399 #### [facility] [address], [address] [place] [address] [employer] Supervisor: Romero Garber MD C-REACTIVE PROTEINon 023 CRP [Mass/Vol] 34.2 mg/L High <8.0 [facility] Comment on above: Performed By: #### 9 05, 91050, 4418, 809, 43566, 4420, 6399 #### [facility] [address], [address] [place] [address] [employer] Supervisor: Romero Garber MD CBC (INCLUDES DIFF/PLT)on Basophils (Bld) [#/Vol] 0.058 10*3/uL Normal 0-200 [facility] Comment on above: Performed By: #### 9 05, 03706, 4418, 809, 30816, 4420, 6399 #### [facility] [place] [address] [employer] Supervisor: Romero Garber MD Basophils/100 WBC (Bld) 0.8 % Normal [facility] Comment on above: Performed By: #### 9 05, 37465, 4418, 809, 78149, 4420, 6399 #### [facility] [place] [address] [employer] Supervisor: Romero Garber MD Eosinophils (Bld) [#/Vol] 0.223 10*3/uL Normal 15-500 [facility] Comment on above: Performed By: #### 9 05, 16960, 4418, 809, 07005, 4420, 6399 #### [facility] [place] [address] [employer] Supervisor: Romero Garber MD Eosinophils/100 WBC (Bld) 3.1 % Normal [facility] Comment on above: Performed By: #### 9 05, 45787, 4418, 809, 29122, 4420, 6399 #### [facility] [place] [address] [employer] Supervisor: Romero Garber MD Erythrocyte distribution width (RBC) [Ratio] 13.0 % Normal 11.0-15.0 [facility] Comment on above: Performed By: #### 9 05, 50906, 4418, 809, 47311, 4420, 6399 #### [facility] [place] [address] [employer] Supervisor: Romero Garber MD Hematocrit (Bld) [Volume fraction] 39.2 % Normal 38.5-50.0 [facility] Comment on above: Performed By: #### 9 05, 25910, 4418, 809, 39232, 4420, 6399 #### [facility] [place] [address] [employer] Supervisor: Romero Garber MD Hemoglobin (Bld) [Mass/Vol] 12.7 g/dL Low 13.2-17.1 [facility] Comment on above: Performed By: #### 9 05, 84110, 4418, 809, 18503, 4420, 6399 #### [facility] [place] [address] [employer] Supervisor: Romero Garber MD Lymphocytes (Bld) [#/Vol] 0.95 10*3/uL Normal 850-3900 [facility] Comment on above: Performed By: #### 9 05, 74753, 4418, 809, 74274, 4420, 6399 #### [facility] [place] [address] [employer] Supervisor: Romero Garber MD Lymphocytes/100 WBC (Bld) 13.2 % Normal [facility] Comment on above: Performed By: #### 9 05, 52583, 4418, 809, 90979, 4420, 6399 #### [facility] [place] [address] [employer] Supervisor: Romero Garber MD MCH (RBC) [Entitic mass] 27.6 pg Normal 27.0-33.0 [facility] Comment on above: Performed By: #### 9 05, 84047, 4418, 809, 17631, 4420, 6399 #### [facility] [place] [address] [employer] Supervisor: Romero Garber MD MCHC (RBC) [Mass/Vol] 32.4 g/dL Normal 32.0-36.[address] [facility] Comment on above: Performed By: #### 9 05, 09552, 4418, 809, 37825, 4420, 6399 #### [facility] [place] [address] [employer] Supervisor: Romero Garber MD MCV (RBC) [Entitic vol] 85.2 fL Normal 80.0-100.0 [facility] Comment on above: Performed By: #### 9 05, 93153, 4418, 809, 45630, 4420, 6399 #### [facility] [place] [address] [employer] Supervisor: Romero Garber MD Monocytes (Bld) [#/Vol] 0.619 10*3/uL Normal 200-950 [facility] Comment on above: Performed By: #### 9 05, 87446, 4418, 809, 03097, 4420, 6399 #### [facility] [place] [address] [employer] Supervisor: Romero Garber MD Monocytes/100 WBC (Bld) 8.6 % Normal [facility] Comment on above: Performed By: #### 9 05, 65442, 4418, 809, 78700, 4420, 6399 #### [facility] [place] [address] [employer] Supervisor: Romero Garber MD Neutrophils (Bld) [#/Vol] 5.35 10*3/uL Normal 8907-2603 [facility] Comment on above: Performed By: #### 9 05, 02927, 4418, 809, 53068, 4420, 6399 #### [facility] [place] [address] [employer] Supervisor: Romero Garber MD Neutrophils/100 WBC (Bld) 74.3 % Normal [facility] Comment on above: Performed By: #### 9 05, 03284, 4418, 809, 41278, 4420, 6399 #### [facility] [place] [address] [employer] Supervisor: Romero Garber MD Platelet mean volume (Bld) [Entitic vol] 9.8 fL Normal 7.5-12.5 [facility] Comment on above: Performed By: #### 9 05, 26530, 4418, 809, 62846, 4420, 6399 #### [facility] [place] [address] [employer] Supervisor: Romero Garber MD Platelets (Bld) [#/Vol] 306 10*3/uL Normal 140-400 [facility] Comment on above: Performed By: #### 9 05, 44294, 4418, 809, 51313, 4420, 6399 #### [facility] of [address], [address] [place] [address] [employer] Supervisor: Romero Garber MD RBC (Bld) [#/Vol] 4.60 10*6/uL Normal 4.20-5.80 [facility] Comment on above: Performed By: #### 9 05, 25765, 4418, 809, 89183, 4420, 6399 #### [facility] [place] [address] [employer] Supervisor: Romero Garber MD WBC (Bld) [#/Vol] 7.2 10*3/uL Normal 3.8-10.8 [facility] Comment on above: Performed By: #### 9 05, 81454, 4418, 809, 20098, 4420, 6399 #### [facility] [place] [address] [employer] Supervisor: Romero Gabrer MD [facility] Albumin [Mass/Vol] 3.6 g/dL Normal 3.6-5.1 [facility] Comment on above: Performed By: #### 9 05, 72494, 4418, 809, 61826, 4420, 6399 #### [facility] [place] [address] [employer] Supervisor: Romero Garber MD Albumin/Globulin [Mass ratio] 1.2 {ratio} Normal 1.0-2.5 [facility] Comment on above: Performed By: #### 9 05, 15340, 4418, 809, 46268, 4420, 6399 #### [facility] of [address], [address] [place] [address] [employer] Supervisor: Romero Garber MD ALP [Catalytic activity/Vol] 90 U/L Normal 35-144 [facility] Comment on above: Performed By: #### 9 05, 14947, 4418, 809, 92700, 4420, 6399 #### [facility] of [address], [address] [place] [address] [employer] Supervisor: Romero Garber MD ALT [Catalytic activity/Vol] 16 U/L Normal 9-46 [facility] Comment on above: Performed By: #### 9 05, 11132, 4418, 809, 33755, 4420, 6399 #### [facility] of [address], [address] [place] [address] [employer] Supervisor: Romero Garber MD AST [Catalytic activity/Vol] 15 U/L Normal 10-35 [facility] Comment on above: Performed By: #### 9 05, 82151, 4418, 809, 35008, 4420, 6399 #### [facility] of [address], [address] [place] [address] [employer] Supervisor: Romero Garber MD Bilirubin [Mass/Vol] 0.4 mg/dL Normal 0.2-1.2 [facility] Comment on above: Performed By: #### 9 05, 35874, 4418, 809, 34797, 4420, 6399 #### [facility] [place] [address] [employer] Supervisor: Romero Garber MD BUN/CREATININE RATIO NOT APPLICABLE Normal 6-22 [facility] Comment on above: Performed By: #### 9 05, 36681, 4418, 809, 56065, 4420, 6399 #### [facility] [place] [address] [employer] Supervisor: Romero Garber MD Calcium [Mass/Vol] 8.8 mg/dL Normal 8.6-10.3 [facility] Comment on above: Performed By: #### 9 05, 55391, 4418, 809, 88543, 4420, 6399 #### [facility] [place] [address] [employer] Supervisor: Romero Garber MD Chloride [Moles/Vol] 107 mmol/L Normal 98-110 [facility] Comment on above: Performed By: #### 9 05, 78731, 4418, 809, 48953, 4420, 6399 #### [facility] [place] [address] [employer] Supervisor: Romero Garber MD CO2 [Moles/Vol] 24 mmol/L Normal 20-32 [facility] Comment on above: Performed By: #### 9 05, 86850, 4418, 809, 93536, 4420, 6399 #### [facility] [place] [address] [employer] Supervisor: Romero Garber MD Creatinine [Mass/Vol] 0.76 mg/dL Normal 0.70-1.[address] [facility] Comment on above: Performed By: #### 9 05, 21942, 4418, 809, 85242, 4420, 6399 #### [facility] [place] [address] [employer] Supervisor: Romero Garber MD GFR/1.73 sq M.predicted among non-blacks MDRD (S/P/Bld) [Vol rate/Area] 102 mL/min/{1.73_m2} Normal > OR = 60 [facility] Comment on above: Result Comment: The eGFR is based on the CKD-EPI 2021 equation. To calculate the new eGFR from a previous Creatinine or Cystatin C result, go to https://www.kidney.org/professionals/ kdoqi/gfr%5Fcalculator Performed By: #### 9 05, 24603, 4418, 809, 03278, 4420, 6399 #### [facility] [place] [address] [employer] Supervisor: Romero Garber MD Globulin (S) [Mass/Vol] 3.1 g/dL Normal 1.9-3.7 [facility] Comment on above: Performed By: #### 9 05, 25406, 4418, 809, 06515, 4420, 6399 #### [facility] [address], [address] [place] [address] [employer] Supervisor: Romero Garber MD Glucose [Mass/Vol] 96 mg/dL Normal 65-139 [facility] Comment on above: Result Comment: Non-fasting reference interval Performed By: #### 9 05, 05523, 4418, 809, 92476, 4420, 6399 #### [facility] [place] [address] [employer] Supervisor: Romero Garber MD Potassium [Moles/Vol] 4.4 mmol/L Normal 3.5-5.[address] [facility] Comment on above: Performed By: #### 9 05, 86562, 4418, 809, 03263, 4420, 6399 #### [facility] [address], [address] [place] [address] [employer] Supervisor: Romero Garber MD Protein [Mass/Vol] 6.7 g/dL Normal 6.1-8.1 [facility] Comment on above: Performed By: #### 9 05, 10945, 4418, 809, 04990, 4420, 6399 #### [facility] [place] [address] [employer] Supervisor: Romero Garber MD Sodium [Moles/Vol] 138 mmol/L Normal 135-146 [facility] Comment on above: Performed By: #### 9 05, 86329, 4418, 809, 04792, 4420, 6399 #### [facility] [place] [address] [employer] Supervisor: Romero Garber MD Urea nitrogen [Mass/Vol] 19 mg/dL Normal 7-25 [facility] Comment on above: Performed By: #### 9 05, 21012, 4418, 809, 31096, 4420, 6399 #### [facility] [place] [address], [address] [place] [address] [employer] Supervisor: Romero Garber MD CYCLIC CITRULLINATED PEPTIDE (CCP) AB (IGG)on 08-22-2022 CYCLIC CITRULLINATED PEPTIDE (CCP) AB (IGG) 30 UNITS High [facility] Comment on above: Result Comment: Refe rence Range Negative: <20 Weak Positive: 20-39 Moderate Positive: 40-59 Strong Positive: >59 Performed By: #### 9 05, 63876, 4418, 809, 94023, 4420, 6399 #### [facility] [place] [address] [employer] Supervisor: Romero Garber MD RHEUMATOID FACTORon 08-23-19 RHEUMATOID FACTOR <14 Normal <14 [facility] Comment on above: Performed By: #### 9 05, 27769, 4418, 809, 25765, 4420, 6399 #### [facility] [place] [address] [employer] Supervisor: Romero Garber MD SED RATE BY MODIFIED WESTERG RENon 08-22-2022 SED RATE BY MODIFIED WESTERGREN 68 mm/h High < OR = 20 [facility] Comment on above: Performed By: #### 9 05, 30894, 4418, 809, 47947, 4420, 6399 #### [facility] [place] [address] [employer] Supervisor: Romero Garber MD URIC ACIDon 08-22-2022 Urate [Mass/Vol] 4.0 mg/dL Normal 4.0-8.0 [facility] Comment on above: Order Comment: FASTI NG:NO FASTING: NO Result Comment: Ther apeutic target for gout patients: <6.0 mg/dL Performed By: #### 9 05, 65229, 4418, 809, 63986, 4420, 6399 #### [facility] [place] [address] [employer] Supervisor: Romero Garber MD ECHOCARDIO M/2D COMPLETEon 0 08-07-2022 ECHOCARDIO M/2D COMPLETE Patient: ANTOINE BUI Exam Date: 08/07/2022 : 1960 Gender:M Ordering : MRS. JACKIE MORALES NP Admission #: [id number] Family : Order #: [id number] CLICK HERE TO VIEW EXAM ECHOCARDIOGRAM REPORT [...] M.D. on 08/07/2022 at 14:43 Normal [facility] CBC AUTO DIFFon 07-17-2022 BASO # 0.0 103/ul Normal 0.0-0.1 [facility] Comment on above: Performed By: #### C BC #### [facility] [address] [place] [address] Dr. Jaaj Berman Basophils/100 WBC (Bld) 0.5 % Normal 0.2-2.0 [facility] Comment on above: Performed By: #### C BC #### [facility] [address] [place] [address] Dr. Jaja Berman EO # 0.2 103/ul Normal 0.0-0.7 [facility] Comment on above: Performed By: #### C BC #### [facility] [address] [place] [address] Dr. Jaja Berman Eosinophils/100 WBC (Bld) 3.5 % Normal 0.9-7.0 [facility] Comment on above: Performed By: #### C BC #### [facility] [address] [place] [address] Dr. Jaja Berman Erythrocyte distribution width (RBC) [Ratio] 12.5 % Normal 11.0-15.0 [facility] Comment on above: Performed By: #### C BC #### [facility] [address] [place] [address] Dr. Jaja Berman Hematocrit (Bld) [Volume fraction] 38.1 % Critically low 42.0-54.0 [facility] Comment on above: Performed By: #### C BC #### [facility] [address] [place] [address] Dr. Jaja Berman Hemoglobin (Bld) [Mass/Vol] 12.5 g/dL Critically low 14.0-18.0 [facility] Comment on above: Performed By: #### C BC #### [facility] [address] [place] [address] Dr. Jaja Berman IG # 0.02 10e3/ul Normal 0.00-0.03 [facility] Comment on above: Performed By: #### C BC #### [facility] [address] [place] [address] Dr. Jaja Berman IG % 0.3 % Normal 0.0-0.5 [facility] Comment on above: Performed By: #### C BC #### [facility] [address] [place] [address] Dr. Jaja Berman LYMPH # 1.2 103/ul Normal 1.2-3.8 [facility] Comment on above: Performed By: #### C BC #### [facility] [address] [place] [address] Dr. Jaja Berman Lymphocytes/100 WBC (Bld) 18.5 % Critically low 20.5-60.0 [facility] Comment on above: Performed By: #### C BC #### [facility] [address] [place] [address] Dr. Jaja Berman MANUAL DIFF REQ NO Normal [facility] Comment on above: Performed By: #### C BC #### [facility] [address] [place] [address] Dr. Jaja Berman MCH (RBC) [Entitic mass] 28.2 pg Normal 25.9-34.0 [facility] Comment on above: Performed By: #### C BC #### [facility] [address] [place] [address] Dr. Jaja Berman MCHC (RBC) [Mass/Vol] 32.8 g/dL Normal 29.9-35.2 [facility] Comment on above: Performed By: #### C BC #### [facility] [address] [place] [address] Dr. Jaja Berman MCV (RBC) [Entitic vol] 86.0 fL Normal 80.0-94.0 [facility] Comment on above: Performed By: #### C BC #### [facility] [address] [place] [address] Dr. Jaja Berman MONO # 0.5 103/ul Normal 0.3-0.8 [facility] Comment on above: Performed By: #### C BC #### [facility] [address] [place] [address] Dr. Jaja Berman Monocytes/100 WBC (Bld) 7.5 % Normal 1.7-12.0 [facility] Comment on above: Performed By: #### C BC #### [facility] [address] [place] [address] Dr. Jaja Berman NEUT # 4.3 103/ul Normal 1.4-6.5 [facility] Comment on above: Performed By: #### C BC #### [facility] [address] [place] [address] Dr. Jaja Berman Neutrophils/100 WBC (Bld) 69.7 % Normal 43.0-75.0 [facility] Comment on above: Performed By: #### C BC #### [facility] [address] [address] [address] Jaja Berman Platelet mean volume (Bld) [Entitic vol] 9.0 fL Critically low 9.5-13.5 [facility] Comment on above: Performed By: #### C BC #### [facility] [address] [address] [address] Jaja Berman PLT 251 103/ul Normal 150-450 [facility] Comment on above: Performed By: #### C BC #### [facility] [address] [address] [address] Jaja Berman RBC 4.43 106/ul Critically low 4.70-6.10 [facility] Comment on above: Performed By: #### C BC #### [facility] [address] [place] [address] Dr. Jaja Berman WBC 6.2 103/ul Normal 4.0-11.0 [facility] Comment on above: Performed By: #### C BC #### [facility] [address] [place] [address] Dr. Jaja Berman LIPID PROFILEon 07-17-2022 CHOL-HDL RATIO NORM SEE BELOW Normal [facility] Comment on above: Result Comment: 3.3 - 4.4 LOW RISK 4.4 - 7.1 AVERAGE RISK 7.1 - 11.0 MODERATE RISK >11.0 HIGH RISK Performed By: #### C MP, LIPID #### [facility] [address] [place] [address] Dr. Jaja Berman Cholesterol [Mass/Vol] 171 mg/dL Normal <=200 [facility] Comment on above: Performed By: #### C MP, LIPID #### [facility] [address] [place] [address] Dr. Jaja Berman Cholesterol in HDL [Mass/Vol] 37 mg/dL Critically low 40-60 [facility] Comment on above: Performed By: #### C MP, LIPID #### [facility] [address] [place] [address] Dr. Jaja Berman Cholesterol in LDL [Mass/Vol] 99.2 mg/dL Normal [facility] Comment on above: Performed By: #### C MP, LIPID #### [facility] [address] [address] [address] Jaja Berman Cholesterol.total/Chol esterol in HDL [Mass ratio] 4.6 {ratio} Normal [facility] Comment on above: Performed By: #### C MP, LIPID #### [facility] [address] [address] [address] Jaja Berman HDL NORMAL > or = 60 mg/dl - LOW CARDIOVASCULAR RISK <40 mg/dl - HIGH CARDIOVASCULAR RISK Normal [facility] Comment on above: Performed By: #### C MP, LIPID #### [facility] [address] [address] [address] Jaja Berman LDL CALC NORMAL SEE BELOW Normal [facility] Comment on above: Result Comment: <100 mg/dl OPTIMAL 100 - 129 mg/dl NEAR OR ABOVE OPTIMAL 130 - 159 mg/dl BORDERLINE HIGH 160 - 189 mg/dl HIGH >190 mg/dl VERY HIGH Performed By: #### C MP, LIPID #### [facility] [address] [address] [address] Jaja Berman Triglyceride [Mass/Vol] 174 mg/dL Critically high <=150 [facility] Comment on above: Performed By: #### C MP, LIPID #### [facility] [facility] [address] [address] [address] Jaja Berman VLDL CALC 34.8 mg/dL Normal [facility] Comment on above: Performed By: #### C MP, LIPID #### [facility] [address] [address] [address] Jaja Berman Office Visiton 07-17-2022 Follow-up visit [id number] Antoine Bui 1960 M Date Provider Department Center 07/17/2022 [id number] MORALES [facility] Family History Problem Relation Age of Onset No Known Problems Mother No Known Problems Father Family Status - Relation Status Age at Mother Father Level of Service:30258 IN OFFICE/OUTPATIENT ESTABLISHED MOD MDM 30-39 MIN Reason for Visit and Comments: Follow-up [292680] - 6 month follow up Normal [facility] PROF 14(COMP METB)on 023 Albumin [Mass/Vol] 2.9 g/dL Critically low 3.4-5.0 [facility] Comment on above: Performed By: #### C MP, LIPID #### [facility] [address] [address] [address] Jaja Berman Albumin/Globulin [Mass ratio] 0.7 {ratio} Normal [facility] Comment on above: Performed By: #### C MP, LIPID #### [facility] [address] [address] [address] Jaja Berman ALP [Catalytic activity/Vol] 97 U/L Normal 46-116 [facility] Comment on above: Performed By: #### C MP, LIPID #### [facility] [address] [address] [address] Jaja Berman ALT [Catalytic activity/Vol] 31 U/L Normal 16-63 [facility] Comment on above: Performed By: #### C MP, LIPID #### [facility] [address] [address] [address] Jaja Berman Anion gap [Moles/Vol] 10.6 mmol/L Normal [facility] Comment on above: Performed By: #### C MP, LIPID #### [facility] [address] [address] [address] Jaja Berman AST [Catalytic activity/Vol] 21 U/L Normal 15-37 [facility] Comment on above: Performed By: #### C MP, LIPID #### [facility] [address] [address] [address] Jaja Berman Bilirubin [Mass/Vol] 0.3 mg/dL Normal 0.2-1.0 [facility] Comment on above: Performed By: #### C MP, LIPID #### [facility] [address] [address] [address] Jaja Berman Calcium [Mass/Vol] 8.8 mg/dL Normal 8.5-10.1 [facility] Comment on above: Performed By: #### C MP, LIPID #### [facility] [address] [address] [address] Jaja Berman Chloride [Moles/Vol] 105 mmol/L Normal 98-107 [facility] Comment on above: Performed By: #### C MP, LIPID #### [facility] [address] [address] [address] Jaja Berman CO2 [Moles/Vol] 26.5 mmol/L Normal 21.0-32.0 [facility] Comment on above: Performed By: #### C MP, LIPID #### [facility] [address] [address] [address] Jjaa Berman Creatinine [Mass/Vol] 0.79 mg/dL Normal 0.70-1.30 [facility] Comment on above: Performed By: #### C MP, LIPID #### [facility] [address] [address] [address] Jaja Berman EGFR-AF TURKMEN >60 Normal >=60 [facility] Comment on above: Performed By: #### C MP, LIPID #### [facility] [address] [address] [address] Jaja Berman EGFR-NON AF TURKMEN >60 Normal >=60 [facility] Comment on above: Performed By: #### C MP, LIPID #### [facility] [address] [address] [address] Jaja Berman Globulin (S) [Mass/Vol] 4.3 g/dL Normal [facility] Comment on above: Performed By: #### C MP, LIPID #### [facility] [address] [address] [address] Jaja Berman Glucose [Mass/Vol] 94 mg/dL Normal 74-106 [facility] Comment on above: Performed By: #### C MP, LIPID #### [facility] [address] [address] [address] Jaja Berman Potassium [Moles/Vol] 4.1 mmol/L Normal 3.5-5.1 [facility] Comment on above: Performed By: #### C MP, LIPID #### [facility] [address] [address] [address] Jaja Berman Protein [Mass/Vol] 7.2 g/dL Normal 6.4-8.2 [facility] Comment on above: Performed By: #### C MP, LIPID #### [facility] [address] [address] [address] Jaja Berman Sodium [Moles/Vol] 138 mmol/L Normal 136-145 [facility] Comment on above: Performed By: #### C MP, LIPID #### [facility] [address] [address] [address] Jaja Berman Urea nitrogen [Mass/Vol] 16.0 mg/dL Normal 7.0-18.0 [facility] Comment on above: Performed By: #### C MP, LIPID #### [facility] [address] [address] [address] Jaja Berman Urea nitrogen/Creatinine [Mass ratio] 20.3 mg/mg Normal [facility] Comment on above: Performed By: #### C MP, LIPID #### [facility] [address] [address] [address] Jaja Berman COVID-19 SOFIAOrdered By: Oxana Almaraz on 02-09-2022 SARS-CoV+SARS-CoV-2 (COVID-19) Ag IA.rapid Ql (Resp) Negative Negative [facility] Comment on above: This is a duplicate Lelo SARS Antigen (AUTUMN) result to be used for statistical tracking purpose only. No Panel InformationOrdered By: Aaron Almaraz on 02-09-2022 SARS Antigen (LFIA) [facility] Vital Signs Date Time Vital Sign Value Performing Clinician Facility 04-23-2023 09:10-0500 Diastolic blood pressure 82 mm[Hg] MD Ashley Palma Work Phone: [facility] 04-23-2023 09:10-0500 Heart rate 65 /min MD Aslhey Palma Work Phone: [facility] 04-23-2023 09:10-0500 Respiratory rate 18 /min MD Ashley Palma Work Phone: [facility] 04-23-2023 09:10-0500 SaO2% (BldA) [Mass fraction] 99 % MD Ashley Palma Work Phone: [facility] 04-23-2023 09:10-0500 Systolic blood pressure 135 mm[Hg] MD Ashley Palma Work Phone: [facility] 04-23-2023 07:11-0500 Body height 182.88 cm MD Ashley Palma Work Phone: [facility] 04-23-2023 07:11-0500 Body weight 86.18 kg MD Ashley Palma Work Phone: [facility] 02-05-2023 09:00-0400 Body height 160.02 cm Aaron Almaraz Other [employer] [facility] [employer] Other 02-05-2023 09:00-0400 Body mass index (BMI) [Ratio] 33.83 kg/m2 Aaron Almaraz Other [facility] Other 02-05-2023 09:00-0400 Body weight 86.64 kg Aaron Almaraz Other [facility] Other 02-05-2023 09:00-0400 Diastolic blood pressure 84 mm[Hg] Aaron Almaraz Other [facility] Other 02-05-2023 09:00-0400 Systolic blood pressure 139 mm[Hg] Aaron Almaraz Other [facility] Other 07-17-2022 09:15-0500 Body height 160.02 cm Aaron Almaraz Other [facility] Other 07-17-2022 09:15-0500 Body mass index (BMI) [Ratio] 35.42 kg/m2 Aaron Dichanely Other [facility] Other 07-17-2022 09:15-0500 Body weight 90.72 kg Aaron Ditty Other [facility] Other 07-17-2022 09:15-0500 Diastolic blood pressure 81 mm[Hg] Aaron Ditty Other [facility] Other 07-17-2022 09:15-0500 Systolic blood pressure 139 mm[Hg] Aaron Ditty Other [facility] Other 11-14-2021 14:00-0400 Body height 160.02 cm Aaron Haoy Other [facility] Other 11-14-2021 14:00-0400 Body mass index (BMI) [Ratio] 35.42 kg/m2 Aaron Marilutty Other [facility] Other 11-14-2021 14:00-0400 Body weight 90.72 kg Aaron Marilutty Other [facility] Other 11-14-2021 14:00-0400 Diastolic blood pressure 84 mm[Hg] Aaron Ditty Other [facility] Other 11-14-2021 14:00-0400 Systolic blood pressure 118 mm[Hg] Aaron Ditty Other [facility] Other 08-01-2021 14:30-0400 Body height 160.02 cm Aaron Buiy Other [facility] Other 08-01-2021 14:30-0400 Body mass index (BMI) [Ratio] 35.42 kg/m2 Aaron Ditty Other [facility] Other 08-01-2021 14:30-0400 Body weight 90.72 kg Aaron Ditty Other [facility] Other 06-06-2021 16:15-0500 Body height 160.02 cm Aaron Ditty Other [facility] Other 06-06-2021 16:15-0500 Body mass index (BMI) [Ratio] 35.42 kg/m2 Aaron Ditty Other [facility] Other 06-06-2021 16:15-0500 Body weight 90.72 kg Aaron Ditty Other [facility] Other 05-09-2021 14:15-0500 Body height 160.02 cm Aaron Ditty Other [facility] Other 05-09-2021 14:15-0500 Body mass index (BMI) [Ratio] 35.25 kg/m2 Aaron Ditty Other [facility] Other 05-09-2021 14:15-0500 Body weight 90.27 kg Aaron Ditty Other [facility] Other 05-09-2021 14:15-0500 Diastolic blood pressure 89 mm[Hg] Aaron Ditty Other [facility] Other 05-09-2021 14:15-0500 Systolic blood pressure 133 mm[Hg] Aaron Ditty Other [facility] Other Encounters Encounter Date Encounter Type Care Provider Facility Start: 05-28-2023 End: 05-28-[address] [facility] Start: 05-17-2023 End: 05-17-2023 ambulatory Aaron Almaraz Other [facility] Other Start: 05-17-2023 Telephone encounter Aaron Almaraz [facility] Start: 05-03-2023 End: 05-03-2023 ambulatory Aaron Almaraz Other [facility] [employer] Other Start: 05-03-2023 Telephone encounter Aaron Almaraz [facility] Start: 04-23-2023 Telephone encounter Aaron Almaraz [facility] Start: 04-23-2023 End: 04-23-2023 ambulatory Aaron Almaraz Facility:[facility] Start: 04-23-2023 End: 04-23-2023 Admission to same day surgery center MD Ashley Palma Work Phone: [facility] Work Phone: Start: 04-23-2023 End: 04-23-2023 ambulatory MD Ashley Palma Work Phone: [facility] Work Phone: Start: 02-21-2023 End: 02-21-2023 ambulatory Aaron Almaraz Other [facility] Other Start: 02-21-2023 Telephone encounter Aaron Almaraz [facility] Start: 02-05-2023 End: 02-05-2023 ambulatory Aaron Almaraz Other [facility] Other Start: 02-05-2023 Patient encounter procedure Aaron Almaraz [facility] Start: 11-20-2022 End: 11-20-2022 ambulatory MOHAMAD [facility] Start: 08-07-2022 End: 08-08-[address] DOCTOR LERMA Facility:[facility] Start: 07-17-2022 Patient encounter procedure Aaron MONTANO [facility] Start: 07-17-2022 End: 07-18-[address] DOCTOR LERMA [facility] Other Start: 06-22-2022 End: 06-22-2022 ambulatory Aaron Almaraz Other [facility] Other Start: 06-22-2022 Telephone encounter Aaron LYNCH [facility] Start: 05-08-2022 End: 05-08-2022 ambulatory Aaron Almaraz Other [facility] Other Start: 05-08-2022 Telephone encounter Aaron LYNCH [facility] Start: 04-11-2022 End: 04-11-2022 ambulatory Aaron Almaraz Other [facility] Other Start: 04-11-2022 Telephone encounter Aaron LYNCH [facility] Start: 03-30-2022 End: 03-30-2022 ambulatory Aaron Almaraz Other [facility] Other Start: 03-30-2022 Telephone encounter Aaron LYNCH [facility] Start: 02-13-2022 End: 02-13-2022 ambulatory Aaron Almaraz Other [facility] Other Start: 02-13-2022 Telephone encounter Aaron LYNCH [facility] Start: 02-09-2022 End: 02-09-2022 Patient encounter procedure MD Ashley Palma Work Phone: [facility] Start: 11-14-2021 End: 11-14-2021 ambulatory Aaron Almaraz Other [facility] Other Start: 11-14-2021 Patient encounter procedure Aaron Almaraz [facility] Start: 08-12-2021 End: 08-12-2021 ambulatory Aaron Almaraz Other [facility] Other Start: 08-12-2021 Telephone encounter Aaron LYNCH [facility] Start: 08-01-2021 End: 08-01-2021 ambulatory Aaron Almaraz Other [facility] Other Start: 08-01-2021 Patient encounter procedure Aaron Almaraz [facility] Start: 08-01-2021 Telephone encounter Aaron LYNCH [facility] Start: 06-06-2021 End: 06-06-2021 ambulatory Aaron Almaraz Other [facility] Other Start: 06-06-2021 Patient encounter procedure Aaron Almaraz [facility] Start: 05-30-2021 End: 05-30-2021 ambulatory Aaron Almaraz Other [facility] Other Start: 05-30-2021 Telephone encounter Aaron Almaraz [facility] Start: 05-09-2021 End: 05-09-2021 ambulatory Aaron Almaraz Other [facility] Other Start: 05-09-2021 Patient encounter procedure Aaron Almaraz [facility] Procedures Date Procedure Procedure Detail Performing Clinician Start: 04-23-2023 Colonoscopy MD Ashley Palma Work Phone: Start: 12-09-2013 General examination of patient Aaron Almaraz Other SARS Antigen (LFIA) MD Merry Palma Work Phone: Plan of Treatment Date Care Activity Detail Author Start: 04-23-2023 [facility] Patient Education Colon polyps C rohn's Disease (DC) [facility] Work Phone: Immunizations Immunization Date Immunization Notes Care Provider Maida santamaria 09-23-2020 COVID-19 mRNAMadonnairnella (Pfizer) MD Ashley Palma Work Phone: [facility] 08-29-2020 COVID-19 Naina Gabriel (Pfizer) MD Ashley Palma Work Phone: [facility] 04-21-2020 influenza virus vaccine, split virus (incl. purified surface antigen) Aaron Almaraz Other [employer] [facility] Other 04-23-2019 influenza virus vaccine, split virus (incl. purified surface antigen) Aaron Almaraz Other [facility] Other 02-18-2014 tetanus and diphther ia toxoids, adsorbed, preservative free, for adult use (5 Lf of tetanus toxoid and 2 Lf of diphtheria toxoid) Aaron Almaraz Other [facility] Other Payers Date Payer Category Payer Self-pay [id number] 1960 Unknown [id number] 1960 Unknown [id number] 1959 Unknown [id number] Private Health Insurance [facility] [employer] [id number] Unknown [id number] Social History Date Type Detail Facility Unknown if ever smoked [facility] Other Sex Assigned At Sex Assigned At Bir th [facility] Other Start: 03-21-2021 End: 02-13-2022 Tobacco smoking status NHIS Never smoked tobacco (finding) [facility] Start: 1960 Sex Assigned At Male F [facility] Goals Date Patient Goal Desired Activity /State Clinical Notes 05-09-2021 to 05-28-2023 Note Date & Type Note Facility 05-28-2023 Note In light of worsenin g/continued SOB with exertion will send pt for labs and CXR. Philip has adverse reaction/side effect of pneumonia Will repeat echocardiogram to assess cardiac function, right sided pressures and Mitral valve regurg. Referral to pulmonology- for further evaluation. [facility] 05-28-2023 Note [facility] CARDIOLOGY PROGR ESS NOTE [...] function, right side (more content not included)... [facility] 05-28-2023 Note Patient here for 6 m [...] All other systems reviewed and are negative. [facility] 05-28-2023 Note Continue toprol [facility] 04-23-2023 Procedure note [facility] 02-05-2023 Evaluation note Encounter Date Diagnosis Assessment Notes Jan, Crohns disease (ICD-10 - K50.90) [facility] Other 07-03-2023 NoteCardiology Clinic Note Subjective Antoine [...] months, or sooner as needed [facility]* Encounter Date Diagnosis Assessment Notes Treatment Notes Treatment Clinical Notes Jun, Crohns disease (ICD-10 - K50.90) Continue Stelara as directed RTO 6 months [facility] Other 02-27-2023 NotePatient is here today for a 6 month follow up. Patient states he has been having knee pain in both knees. Review of Systems Respiratory: Positive for cough. Musculoskeletal: Positive for joint pain.[facility] 07-17-2022 NoteCardiology Clinic Note Subjective Antoine Bui is [...] about 6 months (around 01/14/2023). Jackie Morales APRN-[facility] note* Encounter Date Diagnosis Assessment Notes Treatment Notes Treatment Clinical Notes Jun, Crohns disease (ICD-10 - K50.90) Jun, Joint pain (ICD-10 - M25.50) [facility] Other 06-27-2022 Evaluation note* Encounter Date Diagnosis Assessment Notes Treatment Notes Treatment Clinical Notes Oct, Crohns disease (ICD-10 - K50.90) Continue Humira 80mg every other week. Patient to call if symptoms worsen. Follow up in 6 months. [facility] Other 03-14-2022 Evaluation note* Encounter Date Diagnosis Assessment Notes Treatment Notes Treatment Clinical Notes Jul, Crohns disease (ICD-10 - K50.90) [facility] Other 01-17-2022 Evaluation note* Encounter Date Diagnosis Assessment Notes Treatment Notes Treatment Clinical Notes May, Crohns disease (ICD-10 - K50.90) PROCEED WITH THE HUMIRA INCREASE PREVOIUSLY DISCUSSED AND THIS WAS SUBMITTED TO THE INSURANCE COMPANY [employer] PREDNISONE 20 MG FOR NOW ( UNTIL THE HIGHER DOSE OF HUMIRA CAN BE PUT ON BOARD) F/U HERE 3 MONTHS [facility] Other 12-20-2021 Evaluation note* Encounter Date Diagnosis Assessment Notes Treatment Notes Treatment Clinical Notes Apr, Crohns disease (ICD-10 - K50.90) Pt to take Humira today and have lab drawn prior to next injection Restart Prednisone 20mg daily Follow up in 3 months [facility] Other Evaluation noteNo InformationNort [facility] Other Evaluation noteNo assessment information available [facility] Work Phone: History and physical note Author Aaron Almaraz [facility] April 23, 2023 8:17am Note Date/Time April 23, 2023 8 :17am [facility] [address] [place] [address] Gastroenterology H&P Signed Patient: Antoine Bui MR#: [id number] : 1960 Acct:[id number] Age/Sex: 62 / M Adm Date: 3 Loc: Room: Type: [facility] Attending Dr: Aaron Almaraz MD Copies to: [...] signed by Aaron Almaraz MD> 04/23/23 0817 [facility] Work Phone: History general Narrative - Reported* Type Description Date Medical History CROHNS Medical History palpitations Surgical History hernia repair [facility] Other [facility] Discharge instructions Additional Instructions DISCHARGE [...] problems. -Follow up with PCP. -Office number [phone].[facility] Work Phone: Chief Complaint and Reason for [...] 1 Crohns disease (K50. 90) Referral Organization [facility] Referring Provider First Name Aaron Referring Provider [...] content) DATE CREATED AUTHOR 08/13/2022 [facility] DATE CREATED AUTHOR AUTHOR'S ORGANIZ ATION 11/07/2022 [facility] DATE CREATED AUTHOR AUTHOR'S ORGANIZ ATION 05/03/2023 [facility] DATE CREATED AUTHOR AUTHOR'S ORGANIZ ATION 05/28/2023 [facility] FOR RECORDS PERTAINING TO PATIENTS WHO [...] BE BASED ON THE PRIMARY CLINICAL RECORDS. [facility] [employer] [facility]. provides no warranty or guarantee of the accuracy or completeness of information in this document.
[2023-08-06] MEDS: ALBUTEROL SULFATE 2.5 MG/3 ML VIAL NEB IH (13:39)
--- NOTE | 2023-08-06 13:39 | RT_ITS ---
The [facility] Test Date: 2023-08-06 Pat Name: TABATHA EARL Department: Room: - Gender: Male Box Annealer: Shashi Antonio RRT : 1960 Requested By: Steve Otero Order Number: [id number] Reading MD: Steve Otero Interpretive Statements Pulmonary function testing was completed according to ATS criteria. Findings were considered accurate and reproducible. Both pre- and post-bronchodilator values utilized for spirometry. Spirometry (based on pre-bronchodilator values): -FEV1/FVC: Low normal @ 73% -FEV1: Normal @ 98% -FVC: Normal @ 101% -There is a partial bronchodilator response in FEV1 which meets >200mL increase but <12% change. Lung volumes by plethysmography (based on pre-bronchodilator values): -RV: Normal @ 85% -TLC: Normal @ 99% -Airway resistance: Increased -Airway conductance: Decreased Diffusion capacity: -DLCO: Normal @ 95% when corrected for Hb 14g/dL Flow-volume loop: -'Scooping/coving' of the expiratory limb Impressions: -Spirometry trends towards a mild obstruction pattern. There is a partial bronchodilator response. Lung volumes are normal. The diffusion capacity is normal. Overall study suggests a mild obstructive process such as mild asthma. Clinical correlation required. Electronically Signed On 08-07-2023 16:44:57 EDT by Steve Otero
--- NOTE | 2023-08-06 14:07 | CT_ITS ---
[address] [address] Patient Name: TABATHA EARL MRN: [id number] date: 1960 Sex: M Assigned Patient Location: CARD Current Patient Location: CARD Accession/Order Number: [id number] Exam Date: 08/06/2023 14:15 Report Date: 08/06/2023 15:52 At the request of: HAMILTON JORGENSEN Procedure: CT chest wo con EXAMINATION: CT chest wo con HISTORY: shortness of breath R06.2, abnormal chest xray R93.89 COMPARISON: 05/28/2023 TECHNIQUE: Multi-planar CT images were created with IV contrast. Axial, Coronal, and Sagittal images. Dose reduction techniques were achieved by using automated exposure control and/or adjustment of mA and/or kV according to patient size and/or use of iterative reconstruction technique. FINDINGS: LUNGS: Linear opacity in the left lung base, atelectasis is favored. A few scattered subcentimeter pulmonary nodules measuring up to 4.3 mm, subpleural right upper lobe axial image 24 PLEURA: No mass, effusion, or pneumothorax. VASCULATURE: No abnormality. JOSY: No mass or adenopathy. MEDIASTINUM: No mass or adenopathy. CARDIAC: No enlargement, pericardial thickening, or significant calcification. AORTA: No aneurysm or dissection. CHEST WALL: No mass or axillary adenopathy. BONES: No bone lesion or fracture. LIMITED ABDOMEN: Scattered calcifications in the right hepatic lobe, nonspecific. OTHER: Negative. CT/CT chest wo con IMPRESSION: Left basilar atelectasis Scattered punctate pulmonary nodules, nonspecific, doubtful clinical significance Electronically authenticated by: ENRIQUE STEVENS Date: 08/06/2023 15:52
== END 2023-08-06 12:25 | disposition home or self-care (01) ==
LOC: CARD 12:24
PROVIDERS: PCP Family Medicine; Visit Provider Internal Medicine
DX: R06.02 Shortness of breath (principal); R93.89 Abnormal findings on diagnostic imaging of other specified body structures
CPT/HCPCS: 36415; 71250; 85018; 94060; 94726; 94729

== ENCOUNTER 2024-07-29 08:56 | Outpatient (OUT) | payer OTHER, SELFPAY ==
--- NOTE | 2024-07-29 08:59 | CT_ITS ---
The [address] [address] Patient Name: TABATHA EARL MRN: [id number] date: 1960 Sex: M Assigned Patient Location: CT Current Patient Location: CT Accession/Order Number: [id number] Exam Date: 07/29/2024 10:07 Report Date: 07/29/2024 10:25 At the request of: HAMILTON JORGENSEN DO Procedure: CT chest wo con CT CHEST WITHOUT CONTRAST CLINICAL DATA: Chronic shortness of breath and history of asthma. COMPARISON: 08/06/2023 Spiral images were obtained through the chest without contrast. Images were reviewed using both narrow and wide window settings. This CT exam was performed using one or more following dose reduction techniques: Automated exposure control, adjustment of the mA and/or kV according to patient size, or use of iterative reconstruction technique. The heart is within normal limits for size. There is no pericardial effusion. The ascending aorta is ectatic measuring almost 4 cm in diameter. There are tiny nonpathologic mediastinal lymph nodes. There is subtle levoscoliotic curvature as well as degenerative changes at the spine. There is scarring at the lung apices. There is also similar atelectasis and/or scarring at the bases, greater at the left lower lobe. No additional consolidation, pleural effusion or pneumothorax is seen. Tiny pleural-based nodular densities are again noted. No developing pulmonary nodularity is identified. Limited cuts through the upper abdomen again show hepatic calcifications and a tiny hypodensity. CT/CT chest wo con IMPRESSION: ECTATIC ASCENDING AORTA. ATELECTASIS AND/OR SCARRING. NO ACUTE FINDINGS. Impression dictated by: Carley Alonso M.D.07/29/2024 10:25 AM Dictation Location: [place] [address] Electronically authenticated by: [id number] Y Date: 07/29/2024 10:25
--- OUTSIDE RECORDS SUMMARY | 2024-07-29 09:08 | XMS_ITS | CCD ---
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 Name Role Phone Aaron Almaraz Unavailable MD Ashley Palma Primary Care Provider [phone] MD Aaron Almaraz Attending Provider MISC, DR COLEMAN Admitting Unavailable MISC, DR COLEMAN Attending Unavailable PALMA, DR ASHLEY Grayson Primary Care Unavailable MISC, DR COLEMAN Consulting Unavailable MISC, DR COLEMAN Admitting Unavailable MISC, DR COLEMAN Attending Unavailable PALMA, DR ASHLEY Grayson Primary Care Unavailable MISC, DR COLEMAN Consulting Unavailable MD Ashley Palma Primary Care Provider [phone] MD Aaron Almaraz Attending Provider Aaron Almaraz Attending Unavailable Aaron Almaraz Admitting Unavailable Ashley Palma Primary Care Unavailable Ashley Palma Primary Care Unavailable Aaron Almaraz Attending Unavailable Aaron Almaraz Admitting Unavailable DEION ELDER Attending Unavailable DEION ELDER Attending Unavailable CHYNA GUTIERREZ Attending Unavailable Allergies Allergy Classification Reported Allergen(s) Allergy Type Date of Onset Reaction(s) Facility (5 sources) patient allergy list reviewed by nurse or physicia Propensity to adverse reactions 6 Comment:Done [employer] Other (5 sources) Allergies Reconciled Propensity to adverse reactions Unknown [employer] Other Medications Current Medications Medication Drug Class(es) [...] Start: 04-23-2023 take 1 tablet by boby th every twenty-four hours predniSONE 20 MG 1 [...] Start: 05-09-2021 take 1 tablet by boby th every twenty-four hours predniSONE 20 MG 1 [...] Translations: [Unspecified abdominal pain] Onset: 08-04-2015 Episodic Other gastrointestinal disorders (18 sources) Swollen abdomen; Translations: [Abdominal distension (gaseous)] Episodic Other inflammatory condition of skin (5 sources) Psoriasis; Translations: [Psoriasis, unspecified] Onset: 07-31-2017 Chronic Other non-traumatic joint disorders (1 source) Pain [...] other eczema, due to unspecified cause] Onset: 8 Episodic Cardiac dysrhythmias (7 sources) Palpitations; Translations: [Palpitations] Onset: 8 Episodic Immunizations and screening for infectious disease (5 sources) Vaccination given; Translations: [Encounter for immunization] Onset: 4 Episodic Other gastrointestinal disorders (5 sources) Constipation; Translations: [Other constipation] Onset: 6 Episodic Other lower respiratory disease (6 sources) Other forms of dyspnea; Translations: [OTHER FORMS OF DYSPNEA] Onset: 3 Episodic Phlebitis; thrombophlebitis and thromboembolism (5 sources) Phlebitis and thrombophlebitis of right popliteal vein; Translations: [Phlebitis and thrombophlebitis of right popliteal vein] Onset: 8 Episodic Residual codes; unclassified (5 sources) Edema; Translations: [Edema] Onset: 8 Episodic Results Test Name Value Interpretation Reference Range Facility Office Visiton 02-18-2024 Follow-up visit [id number] Antoine Bui 1960 M Date Provider Department Center 02/18/2024 Brissa8-DEION ELDER CARD [facility] Family History Problem Relation Age of Onset No Known Problems Mother No Known Problems Father Family Status - Relation Status Age at Mother Father Level of Service:97650 CT OFFICE/OUTPATIENT ESTABLISHED LOW MDM 20 MIN Normal [facility] C-Reactive Proteinon 024 CRP [Mass/Vol] mg/L Normal 0.0-0.5 [facility] Comment on above: Result Comment: PERF ORMED BY: [place] [address] PATHOLOGIST SALES AGENT [employer] ALLY WILSON M.D. Performed By: #### C BC, CRP #### [address] #### CALPROTECT #### [facility] , Calprotectin, Fecalon 2023 Calprotectin, Fecal 757 High 0-[address] [facility] Comment on above: Result Comment: Conc entration Interpretation Follow-Up < 5 - 50 ug/g Normal None >50 -120 ug/g Borderline Re-evaluate in 4-6 weeks >120 ug/g Abnormal Repeat as clinically indicated Performed at: [facility] [id number] Informatics Developer: Lloyd Crum MD, Phone: [phone] PERFORMED BY: [place] [address] PATHOLOGIST SALES AGENT [employer] ALLY WILSON M.D. Performed By: #### C BC, CRP #### [address] #### CALPROTECT #### [facility] , Complete Blood Count Auto Di ffon 10-03-2023 Basophils (Bld) [#/Vol] 0.1 10*3/uL Normal 0.0-0.2 [facility] Comment on above: Result Comment: PERF ORMED BY: [place] [address] PATHOLOGIST SALES AGENT [employer] ALLY WILSON M.D. Performed By: #### C BC, CRP #### [address] #### CALPROTECT #### [facility] , Basophils/100 WBC (Bld) 1.0 % Normal . [facility] Comment on above: Performed By: #### C BC, CRP #### [place] [address] [place] #### CALPROTECT #### [facility] , Eosinophils (Bld) [#/Vol] 0.2 10*3/uL Normal 0.0-0.45 [facility] Comment on above: Performed By: #### C BC, CRP #### [place] [address] [place] #### CALPROTECT #### [facility] , Eosinophils/100 WBC (Bld) 3.3 % Normal . [facility] Comment on above: Performed By: #### C BC, CRP #### [place] [address] [place] #### CALPROTECT #### [facility] , Erythrocyte distribution width (RBC) [Ratio] 13.7 % Normal 12.0-14.8 [facility] Comment on above: Performed By: #### C BC, CRP #### [place] [address] [place] #### CALPROTECT #### [facility] , Hematocrit (Bld) [Volume fraction] 42.2 % Normal 38.8-50.0 [facility] Comment on above: Performed By: #### C BC, CRP #### [place] [address] [place] #### CALPROTECT #### [facility] , Hemoglobin (Bld) [Mass/Vol] 14.3 g/dL Normal 13.0-17.0 [facility] Comment on above: Performed By: #### C BC, CRP #### [place] [address] [place] #### CALPROTECT #### [facility] , Lymphocytes (Bld) [#/Vol] 1.3 10*3/uL Normal 1.00-4.8 [facility] Comment on above: Performed By: #### C BC, CRP #### [address] #### CALPROTECT #### [facility] , Lymphocytes/100 WBC (Bld) 18.2 % Normal . [facility] Comment on above: Performed By: #### C BC, CRP #### [place] [address] [place] #### CALPROTECT #### [facility] , MCH (RBC) [Entitic mass] 28.9 pg Normal 27.5-35.2 [facility] Comment on above: Performed By: #### C BC, CRP #### [place] [address] [place] #### CALPROTECT #### [facility] , MCV (RBC) [Entitic vol] 85.2 fL Normal 83.5-101 [facility] Comment on above: Performed By: #### C BC, CRP #### [facility] [address] [place] [address] [place] #### CALPROTECT #### [facility] , Mean Corpuscular HGB Conc 33.9 g/dL Normal 32.5-35.6 [facility] Comment on above: Performed By: #### C BC, CRP #### [place] [address] [place] #### CALPROTECT #### [facility] , Monocytes (Bld) [#/Vol] 0.7 10*3/uL Normal 0.0-0.8 [facility] Comment on above: Performed By: #### C BC, CRP #### [place] [address] [place] #### CALPROTECT #### [facility] , Monocytes/100 WBC (Bld) 9.8 % Normal . [facility] Comment on above: Performed By: #### C BC, CRP #### [place] [address] [place] #### CALPROTECT #### [facility] , Neutrophils (Bld) [#/Vol] 4.7 10*3/uL Normal 1.8-7.7 [facility] Comment on above: Performed By: #### C BC, CRP #### [place] [address] [place] #### CALPROTECT #### [facility] , Neutrophils/100 WBC (Bld) 67.7 % Normal . [facility] Comment on above: Performed By: #### C BC, CRP #### [place] [address] [place] #### CALPROTECT #### [facility] , NRBC% 0.1 /100{WBC} Normal 0-0.5 The [facility] Comment on above: Performed By: #### C BC, CRP #### [facility] [address] [place] [address] [place] #### CALPROTECT #### [facility] , Platelet mean volume (Bld) [Entitic vol] 8.5 fL Normal 6.6-10.1 The [facility] Physician Group Comment on above: Performed By: #### C BC, CRP #### [facility] [address] [place] [address] [place] #### CALPROTECT #### [facility] , Platelets (Bld) [#/Vol] 235 10*3/uL Normal 150-450 [facility] Comment on above: Performed By: #### C BC, CRP #### [facility] [address] [place] [address] [place] #### CALPROTECT #### [facility] , RBC (Bld) [#/Vol] 4.95 10*6/uL Normal 3.90-5.60 [facility] Comment on above: Performed By: #### C BC, CRP #### [facility] [address] [place] [address] [place] #### CALPROTECT #### [facility] , WBC (Bld) [#/Vol] 6.9 10*3/uL Normal 4.1-10.5 [facility] Comment on above: Performed By: #### C BC, CRP #### [facility] [address] [place] [address] [place] #### CALPROTECT #### [facility] , Office Visiton 09-03-2023 Follow-up visit [id number] Antoine Bui 1960 M Date Provider Department Center 09/03/2023 DEION GO CARD [facility] Family History Problem Relation Age of Onset No Known Problems Mother No Known Problems Father Family Status - Relation Status Age at Mother Father Level of Service:66255 CT OFFICE/OUTPATIENT ESTABLISHED LOW MDM 20 MIN Normal [facility] Office Visiton 05-28-2023 Follow-up visit [id number] Antoine Bui 1960 M Date Provider Department Center 05/28/2023 CHYNA ENG Family History Problem Relation Age of Onset No Known Problems Mother No Known Problems Father Family Status - Relation Status Age at Mother Father Level of Service:91646 CT OFFICE/OUTPATIENT ESTABLISHED MOD MDM 30 MIN Normal [facility] Etienne 04-23-2023 L Specimen: [id number] Received: 04/23/23 Status: EDWIN Menendez Num: [id number] Spec Type: Surgical Subm Dr: Aaron Almaraz MD Tissues: A Small Intestine - Biopsy/Polyp (TERMINAL ILEUM BX) B Colon Biopsy (TRANS POLYP) Procedures: JOSE/Nadia, Gross/Micro L4/2 Age/ Patient Sex Location Account Attending Physician Antoine Bui 62/M [id number] Aaron Almaraz MD SPEC NUM: [id number] RECD: 04/23/23 STATUS: EDWIN MENENDEZ NUM: [id number] XIN: 04/23/23 DR: Aaron Almaraz MD ENTERED: 04/23/[address] [facility] [address]: SPEC TYPE: Surgical DEPT: S ORDERED: HE/4, Gross/Micro [...] submitted in one cassette labeled B1. Specimen: [id number] Received: 04/23/23 Status: EDWIN Menendez Num: [id number] Spec Type: Surgical Subm Dr: Aaron Almaraz MD Tissues: A Small Intestine - Biopsy/Polyp (TERMINAL ILEUM BX) B Colon Biopsy (TRANS POLYP) Procedures: Gross/Micro L4/2 Patient: Antoine Bui [id number] (Continued) Specimen: [id number] Received: 04/23/23 (Continued) Signed (signature on file) Jonathan Ludwig MD 04/25/23 0938 Specimen: [id number] Received: 04/23/23 Status: EDWIN Menendez Num: [id number] Spec Type: Surgical Subm Dr: Aaron Almaraz MD Tissues: A Small Intestine - Biopsy/Polyp (TERMINAL ILEUM BX) B Colon Biopsy (TRANS POLYP) Procedures: , Gross/Micro L4/2 Patient: Antoine Bui [id number] (Continued) Specimen: [id number] Received: 04/23/23 (Continued) Microscopic Description A. Two H E slides reviewed. The microscopic examination confirms the diagnosis. B. Two H E slides reviewed. The microscopic examination confirms the diagnosis. CPT Codes 78589s0 Specimen: [id number] Received: 04/23/23 Status: EDWIN Menendez Num: [id number] Spec Type: Surgical Subm Dr: Aaron Almaraz MD Tissues: A Small Intestine - Biopsy/Polyp (TERMINAL ILEUM BX) B Colon Biopsy (TRANS POLYP) Procedures: HE/4, Gross/Micro L4/2 Patient: Antoine Bui [id number] (Continued) Signed (signature on file) Jonathan Ludwig MD 04/25/23 0938 Normal [facility] C-REACTIVE PROTEINon 023 CRP [Mass/Vol] 14.5 mg/L High <8.0 [facility] Comment on above: Performed By: #### 8 , 4420 #### [facility] [address] [employer] Fire [employer] Planner: Romero Garber MD SED RATE BY MODIFIED [facility] 11-07-2022 SED RATE BY MODIFIED [facility] 45 mm/h High < OR = 20 [facility] Comment on above: Performed By: #### 8 09, 4420 #### [facility] [address] [employer] Planner: Romero Garber MD JULISSA SCREEN, IFA, W/REFL [...] AC-0: Negative International Consensus on JULISSA Patterns (https://doi.org/10.1515/vblb-5559-6757) For additional information, please refer to http://education.Eurocept/faq/NSV390 (This link is being provided for informational/ educational purposes only.) Performed By: #### 9 05, 84769, 4418, 809, 98688, 4420, 6399 #### [facility] [address], [address] [place] [address] [employer] Planner: Romero Garber MD C-REACTIVE PROTEINon 023 CRP [Mass/Vol] 34.2 mg/L High <8.0 [facility] Comment on above: Performed By: #### 9 05, 27629, 4418, 809, 71546, 4420, 6399 #### [facility] [place] [address] [employer] Planner: Romero Garber MD CBC (INCLUDES DIFF/PLT)on Basophils (Bld) [#/Vol] 0.058 10*3/uL Normal 0-200 [facility] Comment on above: Performed By: #### 9 05, 14499, 4418, 809, 92573, 4420, 6399 #### [facility] [place] [address] [employer] Planner: Romero Garber MD Basophils/100 WBC (Bld) 0.8 % Normal [facility] Comment on above: Performed By: #### 9 05, 65476, 4418, 809, 67984, 4420, 6399 #### [facility] [place] [address] [employer] Planner: Romero Garber MD Eosinophils (Bld) [#/Vol] 0.223 10*3/uL Normal 15-500 [facility] Comment on above: Performed By: #### 9 05, 74986, 4418, 809, 76809, 4420, 6399 #### [facility] of [address], [address] [place] [address] [employer] Planner: Romero Garber MD Eosinophils/100 WBC (Bld) 3.1 % Normal [facility] Comment on above: Performed By: #### 9 05, 36374, 4418, 809, 72164, 4420, 6399 #### [facility] of [address], [address] [place] [address] [employer] Planner: Romero Garber MD Erythrocyte distribution width (RBC) [Ratio] 13.0 % Normal 11.0-15.0 [facility] Comment on above: Performed By: #### 9 05, 26202, 4418, 809, 19504, 4420, 6399 #### [facility] of [place] [address] [employer] Planner: Romero Garber MD Hematocrit (Bld) [Volume fraction] 39.2 % Normal 38.5-50.0 [facility] Comment on above: Performed By: #### 9 05, 02607, 4418, 809, 43149, 4420, 6399 #### [facility] of [address], [address] [place] [address] [employer] Planner: Romero Garber MD Hemoglobin (Bld) [Mass/Vol] 12.7 g/dL Low 13.2-17.1 [facility] Comment on above: Performed By: #### 9 05, 97471, 4418, 809, 60384, 4420, 6399 #### [facility] of [address], [address] [place] [address] [employer] Planner: Romero Garber MD Lymphocytes (Bld) [#/Vol] 0.95 10*3/uL Normal 850-3900 [facility] Comment on above: Performed By: #### 9 05, 45565, 4418, 809, 12375, 4420, 6399 #### [facility] of [address], [address] [place] [address] [employer] Planner: Romero Garber MD Lymphocytes/100 WBC (Bld) 13.2 % Normal [facility] Comment on above: Performed By: #### 9 05, 48610, 4418, 809, 17966, 4420, 6399 #### [facility] of [place] [address] [employer] Planner: Romero Garber MD MCH (RBC) [Entitic mass] 27.6 pg Normal 27.0-33.0 [facility] Comment on above: Performed By: #### 9 05, 43752, 4418, 809, 55861, 4420, 6399 #### [facility] of [place] [address] [employer] Planner: Romero Garber MD MCHC (RBC) [Mass/Vol] 32.4 g/dL Normal 32.0-36.[address] [facility] Comment on above: Performed By: #### 9 05, 06718, 4418, 809, 85071, 4420, 6399 #### [facility] of [place] [address] [employer] Planner: Romero Garber MD MCV (RBC) [Entitic vol] 85.2 fL Normal 80.0-100.0 [facility] Comment on above: Performed By: #### 9 05, 88930, 4418, 809, 58103, 4420, 6399 #### [facility] [place] [address] [employer] Planner: Romero Garber MD Monocytes (Bld) [#/Vol] 0.619 10*3/uL Normal 200-950 [facility] Comment on above: Performed By: #### 9 05, 34438, 4418, 809, 74111, 4420, 6399 #### [facility] of [place] [address] [employer] Planner: Romero Garber MD Monocytes/100 WBC (Bld) 8.6 % Normal [facility] Comment on above: Performed By: #### 9 05, 26750, 4418, 809, 10696, 4420, 6399 #### [facility] of [address], [address] [place] [address] [employer] Planner: Romero Garber MD Neutrophils (Bld) [#/Vol] 5.35 10*3/uL Normal 7439-9955 [facility] Comment on above: Performed By: #### 9 05, 79737, 4418, 809, 75617, 4420, 6399 #### [facility] of [address], [address] [place] [address] [employer] Planner: Romero Garber MD Neutrophils/100 WBC (Bld) 74.3 % Normal [facility] Comment on above: Performed By: #### 9 05, 52198, 4418, 809, 23207, 4420, 6399 #### [facility] of [address], [address] [place] [address] [employer] Planner: Romero Garber MD Platelet mean volume (Bld) [Entitic vol] 9.8 fL Normal 7.5-12.5 [facility] Comment on above: Performed By: #### 9 05, 65499, 4418, 809, 20095, 4420, 6399 #### [facility] of [place] [address] [employer] Planner: Romero Garber MD Platelets (Bld) [#/Vol] 306 10*3/uL Normal 140-400 [facility] Comment on above: Performed By: #### 9 05, 70897, 4418, 809, 28273, 4420, 6399 #### [facility] of [address], [address] [place] [address] [employer] Planner: Romero Garber MD RBC (Bld) [#/Vol] 4.60 10*6/uL Normal 4.20-5.80 [facility] Comment on above: Performed By: #### 9 05, 43248, 4418, 809, 31579, 4420, 6399 #### [facility] of [address], [address] [place] [address] [employer] Planner: Romero Garber MD WBC (Bld) [#/Vol] 7.2 10*3/uL Normal 3.8-10.8 [facility] Comment on above: Performed By: #### 9 05, 77712, 4418, 809, 44470, 4420, 6399 #### [facility] of [place] [address] [employer] Planner: Romero Garber MD COMPREHENSIVE METABOLIC PANE [facility] 08-22-2022 Albumin [Mass/Vol] 3.6 g/dL Normal 3.6-5.1 [facility] Comment on above: Performed By: #### 9 05, 04978, 4418, 809, 34117, 4420, 6399 #### [facility] of [place] [address] [employer] Planner: Romero Garber MD Albumin/Globulin [Mass ratio] 1.2 {ratio} Normal 1.0-2.5 [facility] Comment on above: Performed By: #### 9 05, 44785, 4418, 809, 69848, 4420, 6399 #### [facility] of [place] [address] [employer] Planner: Romero Garber MD ALP [Catalytic activity/Vol] 90 U/L Normal 35-144 [facility] Comment on above: Performed By: #### 9 05, 86251, 4418, 809, 89736, 4420, 6399 #### [facility] of [place] [address] [employer] Planner: Romero Garebr MD ALT [Catalytic activity/Vol] 16 U/L Normal 9-46 [facility] Comment on above: Performed By: #### 9 05, 86755, 4418, 809, 41592, 4420, 6399 #### [facility] of [place] [address] [employer] Planner: Romero Garber MD AST [Catalytic activity/Vol] 15 U/L Normal 10-35 [facility] Comment on above: Performed By: #### 9 05, 07617, 4418, 809, 25880, 4420, 6399 #### [facility] of [place] [address] [employer] Planner: Romero Garber MD Bilirubin [Mass/Vol] 0.4 mg/dL Normal 0.2-1.2 [facility] Comment on above: Performed By: #### 9 05, 04998, 4418, 809, 91454, 4420, 6399 #### [facility] of [place] [address] [employer] Planner: Romero Garber MD BUN/CREATININE RATIO NOT APPLICABLE Normal 6-22 [facility] Comment on above: Performed By: #### 9 05, 02211, 4418, 809, 90444, 4420, 6399 #### [facility] of [place] [address] [employer] Planner: Romero Garber MD Calcium [Mass/Vol] 8.8 mg/dL Normal 8.6-10.3 [facility] Comment on above: Performed By: #### 9 05, 27466, 4418, 809, 74237, 4420, 6399 #### [facility] [place] [address] [employer] Planner: Romero Garber MD Chloride [Moles/Vol] 107 mmol/L Normal 98-110 [facility] Comment on above: Performed By: #### 9 05, 13051, 4418, 809, 94149, 4420, 6399 #### [facility] of [place] [address] [employer] Planner: Romero Garber MD CO2 [Moles/Vol] 24 mmol/L Normal 20-32 [facility] Comment on above: Performed By: #### 9 05, 05692, 4418, 809, 92552, 4420, 6399 #### [facility] of [place] [address] [employer] Planner: Romero Garber MD Creatinine [Mass/Vol] 0.76 mg/dL Normal 0.70-1.[address] [facility] Comment on above: Performed By: #### 9 05, 61621, 4418, 809, 59071, 4420, 6399 #### [facility] [place] [address] [employer] Planner: Romero Garber MD GFR/1.73 sq M.predicted among non-blacks MDRD (S/P/Bld) [Vol rate/Area] 102 mL/min/{1.73_m2} Normal > OR = 60 [facility] Comment on above: Result Comment: The eGFR is based on the CKD-EPI 2020 equation. To calculate the new eGFR from a previous Creatinine or Cystatin C result, go to https://www.kidney.org/professionals/ kdoqi/gfr%5Fcalculator Performed By: #### 9 05, 75360, 4418, 809, 79600, 4420, 6399 #### [facility] [place] [address] [employer] Planner: Romero Garber MD Globulin (S) [Mass/Vol] 3.1 g/dL Normal 1.9-3.7 [facility] Comment on above: Performed By: #### 9 05, 11465, 4418, 809, 99147, 4420, 6399 #### [facility] [place] [address] [employer] Planner: Romero Garber MD Glucose [Mass/Vol] 96 mg/dL Normal 65-139 [facility] Comment on above: Result Comment: Non-fasting reference interval Performed By: #### 9 05, 81829, 4418, 809, 06836, 4420, 6399 #### [facility] [place] [address] [employer] Planner: Romero Garber MD Potassium [Moles/Vol] 4.4 mmol/L Normal 3.5-5.[address] [facility] Comment on above: Performed By: #### 9 05, 88603, 4418, 809, 05147, 4420, 6399 #### [facility] [address] [address] [employer]anner: Romero Garber MD Protein [Mass/Vol] 6.7 g/dL Normal 6.1-8.1 [facility] Comment on above: Performed By: #### 9 05, 97386, 4418, 809, 13283, 4420, 6399 #### [facility] of [address], [address] [place] [address] [employer] Planner: Romero Garber MD Sodium [Moles/Vol] 138 mmol/L Normal 135-146 [facility] Comment on above: Performed By: #### 9 05, 32330, 4418, 809, 80749, 4420, 6399 #### [facility] of [address], [address] [place] [address] [employer] Planner: Romero Garber MD Urea nitrogen [Mass/Vol] 19 mg/dL Normal 7-25 [facility] Comment on above: Performed By: #### 9 05, 21948, 4418, 809, 70385, 4420, 6399 #### [facility] of [address], [address] [place] [address] [employer] Planner: Romero Garber MD CYCLIC CITRULLINATED PEPTIDE (CCP) AB (IGG)on 08-22-2022 CYCLIC CITRULLINATED PEPTIDE (CCP) AB (IGG) 30 UNITS High [facility] Comment on above: Result Comment: Refe rence Range Negative: <20 Weak Positive: 20-39 Moderate Positive: 40-59 Strong Positive: >59 Performed By: #### 9 05, 21245, 4418, 809, 89990, 4420, 6399 #### [facility] [address], [address] [place] [address] [employer] Support Planner: Romero Garber MD RHEUMATOID FACTORon 08-23-19 23 RHEUMATOID FACTOR <14 Normal <14 [facility] Comment on above: Performed By: #### 9 05, 83700, 4418, 809, 82340, 4420, 6399 #### [facility] of [address], [address] [place] [address] [employer] Planner: Romero Garber MD SED RATE BY MODIFIED WESTERG RENon 08-22-2022 SED RATE BY MODIFIED WESTERGREN 68 mm/h High < OR = 20 [facility] Comment on above: Performed By: #### 9 05, [id number], 4418, 809, 02717, 4420, 6399 #### [facility] [address], [address] [place] [address] [employer] Planner: Romero Garber MD URIC ACIDon 08-22-2022 Urate [Mass/Vol] 4.0 mg/dL Normal 4.0-8.0 [facility] Comment on above: Order Comment: FASTI NG:NO FASTING: NO Result Comment: Ther apeutic target for gout patients: <6.0 mg/dL Performed By: #### 9 05, 33179, 4418, 809, 46945, 4420, 6399 #### [facility] [address], [address] [place] [address] [employer] Planner: Romero Garber MD ECHOCARDIO M/2D COMPLETEon 0 08-07-2022 ECHOCARDIO M/2D COMPLETE Patient: ANTOINE BUI Exam Date: 08/07/2022 : 1960 Gender:M 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 on 08/07/2022 at 14:43 Normal [facility] CBC AUTO DIFFon 07-17-2022 BASO # 0.0 103/ul Normal 0.0-0.1 [facility] Comment on above: Performed By: #### C BC #### [facility] [address] [place] [address] Dr. Jaja Berman Basophils/100 WBC (Bld) 0.5 % Normal 0.2-2.0 [facility] Comment on above: Performed By: #### C BC #### [facility] [address] [place] [address] Dr. Jaja Berman EO # 0.2 103/ul Normal 0.0-0.7 [facility] Comment on above: Performed By: #### C BC #### [facility] [address] [place] [address] Dr. Jaja Berman Eosinophils/100 WBC (Bld) 3.5 % Normal 0.9-7.0 [facility] Comment on above: Performed By: #### C BC #### [facility] [address] [place] [address] Dr. Jaja Berman Erythrocyte distribution width (RBC) [Ratio] 12.5 % Normal 11.0-15.0 [facility] Comment on above: Performed By: #### C BC #### [facility] [address] [place] [address] Dr. Jaja Berman Hematocrit (Bld) [Volume fraction] 38.1 % Critically low 42.0-54.0 [facility] Comment on above: Performed By: #### C BC #### [facility] [address] [place] [address] Dr. Jaja Berman Hemoglobin (Bld) [Mass/Vol] 12.5 g/dL Critically low 14.0-18.0 [facility] Comment on above: Performed By: #### C BC #### [facility] [address] [place] [address] Dr. Jaja Berman IG # 0.02 10e3/ul Normal 0.00-0.03 [facility] Comment on above: Performed By: #### C BC #### [facility] [address] [place] [address] Dr. Jaja Berman IG % 0.3 % Normal 0.0-0.5 [facility] Comment on above: Performed By: #### C BC #### [facility] [address] [place] [address] Dr. Jaja Berman LYMPH # 1.2 103/ul Normal 1.2-3.8 [facility] Comment on above: Performed By: #### C BC #### [facility] [address] [place] [address] Dr. Jaja Berman Lymphocytes/100 WBC (Bld) 18.5 % Critically low 20.5-60.0 [facility] Comment on above: Performed By: #### C BC #### [facility] [address] [place] [address] Dr. Jaja Berman MANUAL DIFF REQ NO Normal [facility] Comment on above: Performed By: #### C BC #### [facility] [address] [place] [address] Dr. Jaja Berman MCH (RBC) [Entitic mass] 28.2 pg Normal 25.9-34.0 [facility] Comment on above: Performed By: #### C BC #### [facility] [address] [place] [address] Dr. Jaja Berman MCHC (RBC) [Mass/Vol] 32.8 g/dL Normal 29.9-35.2 [facility] Comment on above: Performed By: #### C BC #### [facility] [address] [place] [address] Dr. Jaja Berman MCV (RBC) [Entitic vol] 86.0 fL Normal 80.0-94.0 [facility] Comment on above: Performed By: #### C BC #### [facility] [address] [address] [address] Jaja Berman MONO # 0.5 103/ul Normal 0.3-0.8 [facility] Comment on above: Performed By: #### C BC #### [facility] [address] [address] [address] Jaja Berman Monocytes/100 WBC (Bld) 7.5 % Normal 1.7-12.0 [facility] Comment on above: Performed By: #### C BC #### [facility] [address] [place] [address] Dr. Jaja Berman NEUT # 4.3 103/ul Normal 1.4-6.5 [facility] Comment on above: Performed By: #### C BC #### [facility] [address] [place] [address] Dr. Jaja Berman Neutrophils/100 WBC (Bld) 69.7 % Normal 43.0-75.0 [facility] Comment on above: Performed By: #### C BC #### [facility] [address] [place] [address] Dr. Jaja Berman Platelet mean volume (Bld) [Entitic vol] 9.0 fL Critically low 9.5-13.5 [facility] Comment on above: Performed By: #### C BC #### [facility] [address] [place] [address] Dr. Jaja Berman PLT 251 103/ul Normal 150-450 [facility] Comment on above: Performed By: #### C BC #### [facility] [address] [place] [address] Dr. Jaja Berman RBC 4.43 106/ul Critically low 4.70-6.10 [facility] Comment on above: Performed By: #### C BC #### [facility] [address] [place] [address] Dr. Jaja Berman WBC 6.2 103/ul Normal 4.0-11.0 [facility] Comment on above: Performed By: #### C BC #### [facility] [address] [address] [address] Jaja Berman LIPID PROFILEon 07-17-2022 CHOL-HDL RATIO NORM SEE BELOW Normal [facility] Comment on above: Result Comment: 3.3 - 4.4 LOW RISK 4.4 - 7.1 AVERAGE RISK 7.1 - 11.0 MODERATE RISK >11.0 HIGH RISK Performed By: #### C MP, LIPID #### [facility] [address] [address] [address] Jaja Berman Cholesterol [Mass/Vol] 171 mg/dL Normal <=200 [facility] Comment on above: Performed By: #### C MP, LIPID #### [facility] [address] [address] [address] Jaja Berman Cholesterol in HDL [Mass/Vol] 37 mg/dL Critically low 40-60 [facility] Comment on above: Performed By: #### C MP, LIPID #### [facility] [address] [address] [address] Jaja Berman Cholesterol in LDL [Mass/Vol] 99.2 mg/dL Normal [facility] Comment on above: Performed By: #### C MP, LIPID #### [facility] [address] [address] [address] Jaja Berman Cholesterol.total/Chol esterol in HDL [Mass ratio] 4.6 {ratio} Normal [facility] Comment on above: Performed By: #### C MP, LIPID #### [facility] [address] [address] [address] Jaja Berman HDL NORMAL > or = 60 mg/dl - LOW CARDIOVASCULAR RISK <40 mg/dl - HIGH CARDIOVASCULAR RISK Normal [facility] Comment on above: Performed By: #### C MP, LIPID #### [facility] [address] [address] [address] Jaja Berman LDL CALC NORMAL SEE BELOW Normal [facility] Comment on above: Result Comment: <100 mg/dl OPTIMAL 100 - 129 mg/dl NEAR OR ABOVE OPTIMAL 130 - 159 mg/dl BORDERLINE HIGH 160 - 189 mg/dl HIGH >190 mg/dl VERY HIGH Performed By: #### C MP, LIPID #### [facility] [address] [place] [address] Dr. Jaja Berman Triglyceride [Mass/Vol] 174 mg/dL Critically high <=150 [facility] Comment on above: Performed By: #### C MP, LIPID #### [facility] [address] [address] [address] Jaja Berman VLDL CALC 34.8 mg/dL Normal [facility] Comment on above: Performed By: #### C MP, LIPID #### [facility] [address] [address] [address] Jaja Berman PROF 14(COMP METB)on 023 Albumin [Mass/Vol] 2.9 g/dL Critically low 3.4-5.0 [facility] Comment on above: Performed By: #### C MP, LIPID #### [facility] [address] [place] [address] Dr. Jaja Berman Albumin/Globulin [Mass ratio] 0.7 {ratio} Normal [facility] Comment on above: Performed By: #### C MP, LIPID #### [facility] [address] [place] [address] Dr. Jaja Berman ALP [Catalytic activity/Vol] 97 U/L Normal 46-116 [facility] Comment on above: Performed By: #### C MP, LIPID #### [facility] [address] [place] [address] Dr. Jaja Berman ALT [Catalytic activity/Vol] 31 U/L Normal 16-63 [facility] Comment on above: Performed By: #### C MP, LIPID #### [facility] [address] [place] [address] Dr. Jaja Berman Anion gap [Moles/Vol] 10.6 mmol/L Normal [facility] Comment on above: Performed By: #### C MP, LIPID #### [facility] [address] [place] [address] Dr. Jaja Berman AST [Catalytic activity/Vol] 21 U/L Normal 15-37 [facility] Comment on above: Performed By: #### C MP, LIPID #### [facility] [address] [address] [address] Jaja Berman Bilirubin [Mass/Vol] 0.3 mg/dL Normal 0.2-1.0 [facility] Comment on above: Performed By: #### C MP, LIPID #### [facility] [address] [place] [address] Dr. Jaja Berman Calcium [Mass/Vol] 8.8 mg/dL Normal 8.5-10.1 [facility] Comment on above: Performed By: #### C MP, LIPID #### [facility] [address] [place] [address] Dr. Jaja Berman Chloride [Moles/Vol] 105 mmol/L Normal 98-107 [facility] Comment on above: Performed By: #### C MP, LIPID #### [facility] [address] [place] [address] Dr. Jaja Berman CO2 [Moles/Vol] 26.5 mmol/L Normal 21.0-32.0 [facility] Comment on above: Performed By: #### C MP, LIPID #### [facility] [address] [place] [address] Dr. Jaja Berman Creatinine [Mass/Vol] 0.79 mg/dL Normal 0.70-1.30 [facility] Comment on above: Performed By: #### C MP, LIPID #### [facility] [address] [place] [address] Dr. Jaja Berman EGFR-AF NORWEGIAN >60 Normal >=60 [facility] Comment on above: Performed By: #### C MP, LIPID #### [facility] [address] [place] [address] Dr. Jaja Berman EGFR-NON AF NORWEGIAN >60 Normal >=60 [facility] Comment on above: Performed By: #### C MP, LIPID #### [facility] [address] [place] [address] Dr. Jaja Berman Globulin (S) [Mass/Vol] 4.3 g/dL Normal [facility] Comment on above: Performed By: #### C MP, LIPID #### [facility] [address] [address] [address] Jaja Berman Glucose [Mass/Vol] 94 mg/dL Normal 74-[address] [facility] Comment on above: Performed By: #### C MP, LIPID #### [facility] [address] [address] [address] Jaja Berman Potassium [Moles/Vol] 4.1 mmol/L Normal 3.5-5.1 [facility] Comment on above: Performed By: #### C MP, LIPID #### [facility] [address] [address] [address] Jaja Berman Protein [Mass/Vol] 7.2 g/dL Normal 6.4-8.2 [facility] Comment on above: Performed By: #### C MP, LIPID #### [facility] [address] [place] [address] Dr. Jaja Berman Sodium [Moles/Vol] 138 mmol/L Normal 136-145 [facility] Comment on above: Performed By: #### C MP, LIPID #### [facility] [address] [address] [address] Jaja Berman Urea nitrogen [Mass/Vol] 16.0 mg/dL Normal 7.0-18.0 [facility] Comment on above: Performed By: #### C MP, LIPID #### [facility] [address] [place] [address] Dr. Jaja Berman Urea nitrogen/Creatinine [Mass ratio] 20.3 mg/mg Normal [facility] Comment on above: Performed By: #### C MP, LIPID #### [facility] [address] [address] [address] Jaja Berman COVID-19 SOFIAOrdered By: Oxana Almaraz on 02-09-2022 SARS-CoV+SARS-CoV-2 (COVID-19) Ag IA.rapid Ql (Resp) Negative Negative [facility] Comment on above: This is a duplicate Lelo SARS Antigen (AUTUMN) result to be used for statistical tracking purpose only. No Panel InformationOrdered By: Aaron Almaraz on 02-09-2022 SARS Antigen (LFIA) [facility] Vital Signs Date Time Vital Sign Value Performing Clinician Facility 04-23-2023 09:10-0500 Diastolic blood pressure 82 mm[Hg] MD Ashley Palma Work Phone: [facility] 04-23-2023 09:10-0500 Heart rate 65 /min MD Ashley Palma Work Phone: [facility] 04-23-2023 09:10-0500 Respiratory rate 18 /min MD Ashley Palma Work Phone: [facility] 04-23-2023 09:10-0500 SaO2% (BldA) [Mass fraction] 99 % MD Ashley Palma Work Phone: [facility] 04-23-2023 09:10-0500 Systolic blood pressure 135 mm[Hg] MD Ashley Palma Work Phone: [facility] 04-23-2023 07:11-0500 Body height 182.88 cm MD Ashley Palma Work Phone: [facility] 04-23-2023 07:11-0500 Body weight 86.18 kg MD Ashley Palma Work Phone: [facility] 02-05-2023 09:00-0400 Body height 160.02 cm Aaron Almaraz Other [facility] Other 02-05-2023 09:00-0400 Body mass index (BMI) [Ratio] 33.83 kg/m2 Aaron Almaraz Other [facility] Other 02-05-2023 09:00-0400 Body weight 86.64 kg Aaron Almaraz Other [facility] Other 02-05-2023 09:00-0400 Diastolic blood pressure 84 mm[Hg] Aaron Almaraz Other [facility] Other 02-05-2023 09:00-0400 Systolic blood pressure 139 mm[Hg] Aaron Ditty Other [facility] Other 07-17-2022 09:15-0500 Body height 160.02 cm Aaron Ditty Other [facility] Other 07-17-2022 09:15-0500 Body mass index (BMI) [Ratio] 35.42 kg/m2 Aaron Ditty Other [facility] Other 07-17-2022 09:15-0500 Body weight 90.72 kg Aaron Ditty Other [facility] Other 07-17-2022 09:15-0500 Diastolic blood pressure 81 mm[Hg] Aaron Ditty Other [facility] Other 07-17-2022 09:15-0500 Systolic blood pressure 139 mm[Hg] Aaron Ditty Other [facility] Other 11-14-2021 14:00-0400 Body height 160.02 cm Aaron Ditty Other [facility] Other 11-14-2021 14:00-0400 Body mass index (BMI) [Ratio] 35.42 kg/m2 Aaron Ditty Other [facility] Other 11-14-2021 14:00-0400 Body weight 90.72 kg Aaron Ditty Other [facility] Other 11-14-2021 14:00-0400 Diastolic blood pressure 84 mm[Hg] Aaron Ditty Other [facility] Other 11-14-2021 14:00-0400 Systolic blood pressure 118 mm[Hg] Aaron Haoy Other [facility] Other 08-01-2021 14:30-0400 Body height 160.02 cm Aaron Haoy Other [facility] Other 08-01-2021 14:30-0400 Body mass index (BMI) [Ratio] 35.42 kg/m2 Aaron Marilutty Other [facility] Other 08-01-2021 14:30-0400 Body weight 90.72 kg Aaron Haoy Other [facility] Other 06-06-2021 16:15-0500 Body height 160.02 cm Aaron Buiy Other [facility] Other 06-06-2021 16:15-0500 Body mass index (BMI) [Ratio] 35.42 kg/m2 Aaron Micheltty Other [facility] Other 06-06-2021 16:15-0500 Body weight 90.72 kg Aaron Micheltty Other [facility] Other 05-09-2021 14:15-0500 Body height 160.02 cm Aaron Ditty Other [facility] Other 05-09-2021 14:15-0500 Body mass index (BMI) [Ratio] 35.25 kg/m2 Aaron Ditty Other [facility] Other 05-09-2021 14:15-0500 Body weight 90.27 kg Aaron Almaraz Other [facility] Other 05-09-2021 14:15-0500 Diastolic blood pressure 89 mm[Hg] Aaron Mariluchanely Other [facility] Other 05-09-2021 14:15-0500 Systolic blood pressure 133 mm[Hg] Aaron Almaraz Other [facility] Other Encounters Encounter Date Encounter Type Care Provider Facility Start: 02-18-2024 End: 02-18-2024 ambulatory [facility] Start: 10-03-2023 End: 10-03-2023 ambulatory Ashley Palma Facility:[facility] Start: 09-03-2023 End: 09-03-2023 ambulatory [facility] Start: 05-28-2023 End: 05-28-2023 ambulatory [facility] Start: 05-17-2023 End: 05-17-2023 ambulatory Aaron Almaraz Other [facility] [employer] Other Start: 05-17-2023 Telephone encounter [facility] Start: 05-03-2023 End: 05-03-2023 ambulatory Aaron Almaraz Other [facility] [employer] Other Start: 05-03-2023 Telephone encounter Aaron [facility] Start: 04-23-2023 Telephone encounter Aaron [facility] Start: 04-23-2023 End: 04-23-2023 ambulatory Aaron Almaraz Facility:[facility] Start: 04-23-2023 End: 04-23-2023 Admission to same day surgery center MD Ashley Palma Work Phone: [facility] Work Phone: Start: 04-23-2023 End: 04-23-2023 ambulatory MD Ashley Palma Work Phone: [facility] Work Phone: Start: 02-21-2023 End: 02-21-2023 ambulatory Aaron Almaraz Other [facility] Other Start: 02-21-2023 Telephone encounter Aaron [facility] Start: 02-05-2023 End: 02-05-2023 ambulatory Aaron Almaraz Other [facility] Other Start: 02-05-2023 Patient encounter procedure Aaron Almaraz [facility] Start: 08-07-2022 End: 08-08-[address] DOCTOR LERMA Facility: Start: 07-17-2022 Patient encounter procedure Aaron Almaraz [facility] Start: 07-17-2022 End: 07-18-[address] DOCTOR LERMA [facility] [employer] Other Start: 06-22-2022 End: 06-22-2022 ambulatory Aaron Almaraz Other [facility] Other Start: 06-22-2022 Telephone encounter Aaron [facility] Start: 05-08-2022 End: 05-08-2022 ambulatory Aaron Almaraz Other [facility] Other Start: 05-08-2022 Telephone encounter Aaron [facility] Start: 04-11-2022 End: 04-11-2022 ambulatory Aaron Almaraz Other [facility] Other Start: 04-11-2022 Telephone encounter Aaron [facility] Start: 03-30-2022 End: 03-30-2022 ambulatory Aaron Buiy Other [facility] Other Start: 03-30-2022 Telephone encounter Aaron Mariluchanelshelli [facility] Start: 02-13-2022 End: 02-13-2022 ambulatory Aaron Mariluchanelshelli Other [facility] Other Start: 02-13-2022 Telephone encounter Aaron Marilukady [facility] Start: 02-09-2022 End: 02-09-2022 Patient encounter procedure MD Ashley Palma Work Phone: [facility] Start: 11-14-2021 End: 11-14-2021 ambulatory Aaron Mariluchanelshelli Other [facility] Other Start: 11-14-2021 Patient encounter procedure Aaron Mariluchanelshelli [facility] Start: 08-12-2021 End: 08-12-2021 ambulatory Aaron Mariluchanelshelli Other [facility] Other Start: 08-12-2021 Telephone encounter Aaron Marilukady [facility] Start: 08-01-2021 End: 08-01-2021 ambulatory Aaron Mariluchanely Other [employer] Other Start: 08-01-2021 Patient encounter procedure Aaron Mariluchanelshelli [facility] Start: 08-01-2021 Telephone encounter Aaron Marilukady [facility] Start: 06-06-2021 End: 06-06-2021 ambulatory Aaron Mariluchanely Other [facility] Other Start: 06-06-2021 Patient encounter procedure Aaron Mariluchanelshelli [facility] Start: 05-30-2021 End: 05-30-2021 ambulatory Aaron Mariluchanely Other [facility] Other Start: 05-30-2021 Telephone encounter Aaron Almaraz [facility] Start: 05-09-2021 End: 05-09-2021 ambulatory Aaron Almaraz Other [facility] Other Start: 05-09-2021 Patient encounter procedure Aaron Almaraz [facility] Procedures Date Procedure Procedure Detail Performing Clinician Start: 04-23-2023 Colonoscopy MD Ashley Palma Work Phone: Start: 12-09-2013 General examination of patient Aaron Almaraz Other SARS Antigen (LFIA) MD Merry Palma Work Phone: Plan of Treatment Date Care Activity Detail Author Start: 04-23-2023 [facility] Patient Education Colon polyps C rohn's Disease (DC) [facility] Work Phone: Immunizations Immunization Date Immunization Notes Care Provider Fa cili 09-23-2020 COVID-19 mRNA, Comirnaty (Pfizer) MD Ashley Palma Work Phone: [facility] 08-29-2020 COVID-19 mRNA, Comirnaty (Pfizer) MD Ashley Palma Work Phone: [facility] 04-21-2020 influenza virus vaccine, split virus (incl. purified surface antigen) Aaron Ditty Other [facility] Other 04-23-2019 influenza virus vaccine, split virus (incl. purified surface antigen) Aaron Almaraz Other [facility] Other 02-18-2014 tetanus and diphther ia toxoids, adsorbed, preservative free, for adult use (5 Lf of tetanus toxoid and 2 Lf of diphtheria toxoid) Aaron Sung Other [facility] Other Payers Date Payer Category Payer Self-pay [id number] 1960 Unknown [id number] 1960 Unknown [id number] 1959 Unknown [id number] [facility] [id number] Unknown [id number] Unknown [id number] Social History Date Type Detail Facility Unknown if ever smoked [facility] Other Sex Assigned At Sex Assigned At Bir th [employer] Other Start: 03-21-2021 End: 02-13-2022 Tobacco smoking status NHIS Never smoked tobacco (finding) [facility] Start: 1960 Sex Assigned At Male F [facility] Goals Date Patient Goal Desired Activity /State Clinical Notes 05-09-2021 to 02-18-2024 Note Date & Type Note Facility 02-18-2024 Note [facility] PROGR ESS NOTE HPI: Antoine Bui is a 63 y.o. male here for routine f/U MCCABE and palpitations Patient presents today for follow-up. Overall, patient states that he is doing well. He denies any cardiac complaints or concerns. He states that his palpitations are less than usual. He denies any chest pain. Denies any worsening of shortness of breath, states that his breathing has significantly improved with his inhalers. He denies any lower extremity GRIS, orthopnea, or paroxysmal nocturnal dyspnea. Overall, he is doing well Cardiology ROS: 10 point ROS is performed and is negative unless otherwise specified in HPI. Visit Vitals BP 147/88 Pulse 88 Ht 1.829 m (6') Wt 88.5 kg (195 lb) SpO2 99% BMI 26.45 kg/m??? Smoking Status Never BSA 2.12 m??? No Known Allergies Medications: Current Outpatient Medications on File Prior to Visit Medication Sig Dispense Refill Dulera 100-5 mcg/actuation inhaler INHALE 2 PUFFS BY MOUTH TWICE DAILY (RINSE AFTER USE) metoprolol succinate XL (Toprol-XL) 25 mg 24 hr tablet Take 1 tablet (25 mg) by mouth once daily as directed. 90 tablet 3 ustekinumab (Stelara) subcutaneous injection Inject 90 mg under the skin every 3 (three) months. Every 6 weeks No current facility-administered medications on file prior [...] pericardial effusion Assessment/Plan: Intermittent palpitations Continue toprol Symptoms are overall improved Patient states that his palpitations come in spurts. I instructed him that when he feels them next, he should call cardiology and we can check with him with a monitor to assess for arrhythmias. He voices understanding Dyspnea Cardiac workup has been largely unrevealing thus far Echo demonstrates normal LVEF, normal right sided pressures, no significant valvular abnormality Patient is seeing Pulmonary and has noticed significant improvement with inhalers Discussed possible ischemic eval. Patient declines at this time. No chest pain. Symptoms are improving with inhalers. 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 [facility] 09-03-2023 Note Patient here for 3 m o follow up . Had echo after last apt in May 2023. He is now seeing pulmonary and had recent workup. He was given Dulera inhaler and he says this has helped his SOB. Denies chest pain, and palpitations are still infrequent. Doing very well. [facility] 09-03-2023 Note [facility] CARDIOLOGY PROGR ESS NOTE HPI: Atnoine Bui is a 62 y.o. male here [...] reviewed and are negative. Visit Vitals BP 126/78 (BP Location: Left arm, Patient Position: Sitting) Pulse 80 Ht 1.829 m (6') Wt 91.2 kg (201 lb) SpO2 95% BMI 27.26 kg/m??? Smoking Status Never BSA 2.15 m??? No Known Allergies Medications: Current Outpatient Medications on File Prior to Visit Medication Sig Dispense Refill Dulera 100-5 mcg/actuation inhaler INHALE 2 PUFFS BY MOUTH TWICE DAILY (RINSE AFTER USE) metoprolol succinate XL (Toprol-XL) 25 mg 24 hr tablet Take 1 tablet (25 mg) by mouth once daily as directed. 90 tablet 3 ustekinumab (Stelara) subcutaneous injection Inject 90 mg under the skin every 3 (three) months. Every 6 weeks No current facility-administered medications on file prior [...] pericardial effusion Assessment/Plan: Intermittent palpitations Continue toprol Symptoms are overall improved Dyspnea Cardiac workup has been largely unrevealing thus far Echo demonstrates normal LVEF, normal right sided pressures, no significant valvular abnormality Patient is seeing Pulmonary and has noticed improvement with inhalers Discussed possible ischemic eval. Patient declines at this time. No chest pain. Symptoms are improvin (more content not included)... [facility] 05-28-2023 Note In light of worsenin g/continued SOB with exertion will send pt for labs and CXR. Leora has adverse reaction/side effect of pneumonia Will repeat echocardiogram to assess cardiac function, right sided pressures and Mitral valve regurg. Referral to pulmonology- for further evaluation. [facility] 05-28-2023 Note [facility] CARDIOLOGY PROGR ESS [...] function, right side (more content not included)... [facility] 05-28-2023 Note Patient here for 6 [...] All other systems reviewed and are negative. [facility] 05-28-2023 Note Continue toprol [facility] 04-23-2023 Procedure note [facility] 02-05-2023 Evaluation note Encounter Date Diagnosis Assessment Notes Jan, Crohns disease (ICD-10 - K50.90) [facility] Other 02-27-2023 Evaluation note* Encounter Date Diagnosis Assessment Notes Treatment Notes Treatment Clinical Notes Jun, Crohns disease (ICD-10 - K50.90) Continue Stelara as directed RTO 6 months [facility] Other 02-02-2023 Evaluation note* Encounter Date Diagnosis Assessment Notes Treatment Notes Treatment Clinical Notes Jun, Crohns disease (ICD-10 - K50.90) Jun, Joint pain (ICD-10 - M25.50) [facility] Other 06-27-2022 Evaluation note* Encounter Date Diagnosis Assessment Notes Treatment Notes Treatment Clinical Notes Oct, Crohns disease (ICD-10 - K50.90) Continue Humira 80mg every other week. Patient to call if symptoms worsen. Follow up in 6 months. [facility] Other 03-14-2022 Evaluation note* Encounter Date Diagnosis Assessment Notes Treatment Notes Treatment Clinical Notes Jul, Crohns disease (ICD-10 - K50.90) [facility] Other 01-17-2022 Evaluation note* Encounter Date Diagnosis Assessment Notes Treatment Notes Treatment Clinical Notes May, Crohns disease (ICD-10 - K50.90) PROCEED WITH THE HUMIRA INCREASE PREVOIUSLY DISCUSSED AND THIS WAS SUBMITTED TO THE INSURANCE COMPANY [employer] PREDNISONE 20 MG FOR NOW ( UNTIL THE HIGHER DOSE OF HUMIRA CAN BE PUT ON BOARD) F/U HERE 3 MONTHS [facility] Other 12-20-2021 Evaluation note* Encounter Date Diagnosis Assessment Notes Treatment Notes Treatment Clinical Notes Apr, Crohns disease (ICD-10 - K50.90) Pt to take Humira today and have lab drawn prior to next injection Restart Prednisone 20mg daily Follow up in 3 months [employer] Other Evaluation noteNo [facility] Other Evaluation noteNo assessment information available [facility] Work Phone: History and physical note Author Aaron Almaraz [facility] April 23, 2023 8:17am Note Date/Time April 23, 2023 8 :17am [facility] [address] [place] [address] Gastroenterology H&P Signed Patient: Antoine Bui MR#: [id number] : 1960 Acct:[id number] Age/Sex: 62 / M Adm Date: 3 Loc: Room: Type: [facility] Attending Dr: Aaron Almaraz MD Copies to: [...] Almaraz MD Documented By: Aaron Almaraz MD 04/23/2316 Signed By: <Electronically signed by Aaron Almaraz MD> 04/23/2317 [facility] Work Phone: History general Narrative - Reported* Type Description Date Medical History CROHNS Medical History palpitations Surgical History hernia repair [facility] Other History general N[facility]ative - [facility] [employer] Other Hospital Discharge instructions Additional Instructions DISCHARGE [...] NOT operate machinery such as power tools, [employer] mowers, snow blowers, sewing machines, etc. for [...] problems. -Follow up with PCP. -Office number [phone].[facility] Work Phone: Chief Complaint and Reason for Visit Chief Complaint Crohn's Disease Advance Directives No Advanced Directives Records Found Advance Directive Response Recorded Date/ Time Advance Directives No August 12, 1:21pm Advance Directive Response Recorded Date/ Time Advance Directives No August 12, 12:21pm Reason for Referral Reason 08/14/22 @ 12:30 C onsult to rule out arthritis related to Crohns disease Diagnosis 1 Crohns disease (K50. 90) Referral Organization [facility] Gastroenterolo gy Referring Provider First Name Aaron Referring Provider [...] they did not receive referral. Referral re-faxed. Bynum, Ivonne 07/11/2022 10:05:36 AM > Per Dr. Tillman's [...] TIME AND DOES CONTINUE ON THE MEDICATION.MEDICATION- HUMIRA08 HUMIRAPRESCRIPTION CLARIFICATIONStelara - approvedStelaraClinicalClinicalPATIENT HERE FOR 6 [...] content) DATE CREATED AUTHOR 08/13/2022 [facility] DATE CREATED AUTHOR AUTHOR'S ORGANIZ ATION 11/07/2022 [facility] DATE CREATED AUTHOR AUTHOR'S ORGANIZ ATION 10/13/2023 [facility] DATE CREATED AUTHOR AUTHOR'S ORGANIZ ATION 02/20/2024 [facility] FOR RECORDS PERTAINING TO PATIENTS WHO ARE [...] BE BASED ON THE PRIMARY CLINICAL RECORDS. [employer] provides no warranty or guarantee of the accuracy or completeness of information in this document.
== END 2024-07-29 08:57 | disposition home or self-care (01) ==
LOC: CT 08:56
PROVIDERS: PCP Family Medicine; Visit Provider Internal Medicine
DX: I77.819 Aortic ectasia, unspecified site (principal); J45.30 Mild persistent asthma, uncomplicated
CPT/HCPCS: 71250